=== PATIENT | female | born 1985 | race Caucasian/White ===

== ENCOUNTER 2016-11-07 12:22 | Emergency (ER) | payer SELFPAY ==
--- NOTE | 2016-11-07 12:32 | ER Document Report ---
ED Medical Screen (RME) - General Stated Complaint: LEG PAIN Notes: Left lower extremity pain status post fall TRAVEL OUTSIDE OF THE [place] IN LAST 30 DAYS: No - Related Data Allergies/Adverse Reactions: latex [Latex] Allergy (Severe, Verified 08/11/16 12:07) swelling,burning trazodone [Trazodone] Allergy (Intermediate, Verified 08/11/16 12:07) Hives ibuprofen Allergy (Verified 08/11/16 12:07) tramadol [Tramadol] Allergy (Verified 08/11/16 12:07) ondansetron HCl [From Zofran] Adverse Reaction (Intermediate, Verified 08/11/16 12:07) GI upset hydrocodone bitartrate [From Vicodin] Adverse Reaction (Verified 08/11/16 12:07) GI upset Past Medical History - Social History Family history: Reviewed & Not Pertinent, Other - Her sisters all have dysmenorrhea - Past Medical History Cardiac Medical History: Denies: Hx Pulmonary Embolism Pulmonary Medical History: Reports: Hx Asthma - exercise induced Denies: Hx Sleep Apnea, Hx Tuberculosis Renal/ Medical History: Reports: Hx Ovarian Cysts GI Medical History: Reports: Hx Gastroesophageal Reflux Disease, Hx Ulcer Musculoskeltal Medical History: Reports Hx Musculoskeletal Deformity, Reports Hx Musculoskeletal Trauma Psychiatric Medical History: Reports: Hx Attention Deficit Hyperactivity Disorder, Hx Bipolar Disorder - age 9, Hx Personality Disorder, Hx Post Traumatic Stress Disorder, Hx Schizophrenia Denies: Hx Depression Past Surgical History: Reports: Hx Breast Surgery, Hx Cardiac Surgery, Hx Section - x2, Hx Tubal Ligation. Denies: Hx Hysterectomy, Hx Pacemaker - Immunizations Immunizations up to date: Yes Hx Diphtheria, Pertussis, Tetanus Vaccination: Yes - received in 2009
--- NOTE | 2016-11-07 13:42 | ER Document Report ---
HPI - HPI Patient complains to provider of: knee pain Pain Level: 4 Context: Patient is a 30-year-old female presents emergency Department complaining of left hip knee and ankle pain. 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 States she had a twisting injury to her left knee as she was falling and landed on her left hip. Patient states that she has a history of a torn meniscus in her left knee that she has never had surgery on. She is unaware if it is either lateral or medial. Patient states at home she has been taking Tylenol and using a heating pad with minimal improvement in her symptoms. - CARDIOVASCULAR Cardiovascular: DENIES: Chest pain - REPRODUCTIVE Reproductive: DENIES: : - DERM Skin Color: Normal Past Medical History - General Information source: Patient - Social History Smoking Status: Current Every Day Smoker Chew tobacco use (# tins/day): No Frequency of alcohol use: None Drug Abuse: None Family History: Reviewed & Not Pertinent Patient has suicidal ideation: No Patient has homicidal ideation: No - Past Medical History Cardiac Medical History: Denies: Hx Pulmonary Embolism Pulmonary Medical History: Reports: Hx Asthma - exercise induced Denies: Hx Sleep Apnea, Hx Tuberculosis Renal/ Medical History: Reports: Hx Ovarian Cysts. Denies: Hx Peritoneal Dialysis GI Medical History: Reports: Hx Gastroesophageal Reflux Disease, Hx Ulcer Musculoskeltal Medical History: Reports Hx Musculoskeletal Deformity, Reports Hx Musculoskeletal Trauma Psychiatric Medical History: Reports: Hx Attention Deficit Hyperactivity Disorder, Hx Bipolar Disorder - age 9, Hx Personality Disorder, Hx Post Traumatic Stress Disorder, Hx Schizophrenia Denies: Hx Depression Past Surgical History: Reports: Hx Breast Surgery, Hx Cardiac Surgery, Hx Section - x2, Hx Tubal Ligation. Denies: Hx Hysterectomy, Hx Pacemaker - Immunizations Immunizations up to date: Yes Hx Diphtheria, Pertussis, Tetanus Vaccination: Yes - received in 2009 Hx Pneumococcal Vaccination: 08/27/12 Vertical Provider Document - CONSTITUTIONAL Agree With Documented VS: Yes Exam Limitations: No Limitations General Appearance: Mild Distress - INFECTION CONTROL TRAVEL OUTSIDE OF THE [place] IN LAST 30 DAYS: No - HEENT HEENT: Atraumatic, Normocephalic - RESPIRATORY O2 Sat by Pulse Oximetry: 97 - CARDIOVASCULAR Pulses: Normal: Radial, Popliteal, Dorsalis pedis Notes: cap refill less than 2 seconds in bilateral lower extremity digits - BACK Back: Normal Inspection - nontender - MUSCULOSKELETAL/EXTREMETIES Musculoskeletal/Extremeties: MAEW, FROM, Non-Tender - Tenderness to palpation with guarding. Pain worse on the medial aspect of the left knee. No pain to palpation of the ankle. No pain to palpation of the hip Notes: Able to ambulate with limping. But able to bear weight. Negative anterior and posterior drawer. Negative varus stress but positive valgus stress of the medial aspect of the knee. Positive Apley at the medial meniscus. Minor joint swelling of the left knee - NEURO Level of Consciousness: Awake, Alert, Appropriate Motor/Sensory: No Motor Deficit, No Sensory Deficit - DERM Integumentary: Warm, Dry, No Rash Course - Re-evaluation Re-evalutation: 11/07/16 13:41 Patient's history and physical exam reveal internal knee injury of the left knee. Likely sprain of the left ankle. 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 Encouraged to follow-up with orthopedics for further evaluation - Vital Signs Vital signs: Temp Pulse Resp BP Pulse Ox 98.2 F 103 H 20 105/72 97 11/07/16 12:34 11/07/16 12:34 11/07/16 12:34 11/07/16 12:34 11/07/16 12:34 - Diagnostic Test Radiology reviewed: Image reviewed, Reports reviewed Discharge - Discharge Clinical Impression: Internal knee problem Qualifiers: Laterality: left Qualified Code(s): M23.92 - Unspecified internal derangement of left knee Ankle sprain Qualifiers: Encounter type: initial encounter Involved ligament of ankle: deltoid ligament Laterality: left Qualified Code(s): S93.422A - Sprain of deltoid ligament of left ankle, initial encounter Condition: Good Disposition: HOME, SELF-CARE Instructions: Ice Packs ([facility]), Sprained Ankle ([facility]), Suspected Internal Knee Injury ([facility]), Use of Nnca-Pgf-Cuiymci Ibuprofen ([facility]) Forms: Return to Work Referrals: KASIA HARE, [ACTIVE STAFF] - Follow up as needed
[2016-11-07] MEDS ORDERED: NAPROXEN 375 MG TABLET PO ONE (13:44)
[2016-11-07 14:35] VITALS: BP 95/64
== END 2016-11-07 14:33 | disposition home or self-care (01) ==
LOC: ER 12:22
DX: S93.422A Sprain of deltoid ligament of left ankle, initial encounter (principal); M23.92 Unspecified internal derangement of left knee; M25.552 Pain in left hip; F17.200 Nicotine dependence, unspecified, uncomplicated; W01.0XXA Fall on same level from slipping, tripping and stumbling without subsequent striking against object, initial encounter; Y93.41 Activity, dancing; Y92.89 Other specified places as the place of occurrence of the external cause; Y99.0 Civilian activity done for income or pay; Z98.51 Tubal ligation status
CPT/HCPCS: 99283; 73610; 73562; J3490

== ENCOUNTER 2016-11-08 17:58 | Emergency (ER) | payer SELFPAY ==
--- NOTE | 2016-11-08 18:30 | ER Document Report ---
ED Medical Screen (RME) - General Chief Complaint: Pelvic Pain Stated Complaint: VAGINAL BLEEDING,NAUSEA,VOMITING Notes: Vaginal bleeding nausea and vomiting intermittently 5 days TRAVEL OUTSIDE OF THE [place] IN LAST 30 DAYS: No - Related Data Allergies/Adverse Reactions: latex [Latex] Allergy (Severe, Verified 11/07/16 12:34) swelling,burning trazodone [Trazodone] Allergy (Intermediate, Verified 11/07/16 12:34) Hives ibuprofen Allergy (Verified 11/07/16 12:34) tramadol [Tramadol] Allergy (Verified 11/07/16 12:34) ondansetron HCl [From Zofran] Adverse Reaction (Intermediate, Verified 11/07/16 12:34) GI upset hydrocodone bitartrate [From Vicodin] Adverse Reaction (Verified 11/07/16 12:34) GI upset Past Medical History - Social History Family history: Reviewed & Not Pertinent, Other - Her sisters all have dysmenorrhea - Past Medical History Cardiac Medical History: Denies: Hx Pulmonary Embolism Pulmonary Medical History: Reports: Hx Asthma - exercise induced Denies: Hx Sleep Apnea, Hx Tuberculosis Renal/ Medical History: Reports: Hx Ovarian Cysts. Denies: Hx Peritoneal Dialysis GI Medical History: Reports: Hx Gastroesophageal Reflux Disease, Hx Ulcer Musculoskeltal Medical History: Reports Hx Musculoskeletal Deformity, Reports Hx Musculoskeletal Trauma Psychiatric Medical History: Reports: Hx Attention Deficit Hyperactivity Disorder, Hx Bipolar Disorder - age 9, Hx Personality Disorder, Hx Post Traumatic Stress Disorder, Hx Schizophrenia Denies: Hx Depression Past Surgical History: Reports: Hx Breast Surgery, Hx Cardiac Surgery, Hx Section - x2, Hx Tubal Ligation. Denies: Hx Hysterectomy, Hx Pacemaker - Immunizations Immunizations up to date: Yes Hx Diphtheria, Pertussis, Tetanus Vaccination: Yes - received in 2009 Physical Exam - Vital signs Vitals: Temp Pulse Resp BP Pulse Ox 98.0 F 84 18 99/65 L 100 11/08/16 18:25 11/08/16 18:25 11/08/16 18:25 11/08/16 18:25 11/08/16 18:25 Course - Vital Signs Vital signs: Temp Pulse Resp BP Pulse Ox 98.0 F 84 18 99/65 L 100 11/08/16 18:25 11/08/16 18:25 11/08/16 18:25 11/08/16 18:25 11/08/16 18:25
[2016-11-08 19:02] LABS: ABSOLUTE BASOPHILS # (AUTO) 0.1 10^3/uL (0.0-0.2); ABSOLUTE EOSINOPHILS # (AUTO) 0.1 10^3/uL (0.0-0.6); ABSOLUTE LYMPHOCYTES (AUTO) 2.4 10^3/uL (0.5-4.7); ABSOLUTE MONOCYTES (AUTO) 0.5 10^3/uL (0.1-1.4); ABSOLUTE NEUT (AUTO) 4.2 10^3/uL (1.7-8.2); BASOPHILS % (AUTO) 0.9 % (0-2); EOSINOPHILS % (AUTO) 1.4 % (0-6); HEMATOCRIT 39.9 % (36.0-47.0); HEMOGLOBIN 12.6 g/dL (12.0-15.5); HGB HCT DIFFERENCE -2.1; LYMPHOCYTES % (AUTO) 32.8 % (13-45); MEAN CORPUSCULAR HEMOGLOBIN 29.8 pg (27.0-33.4); MEAN CORPUSCULAR HGB CONC 31.7 g/dL (32.0-36.0); MEAN CORPUSCULAR VOLUME 94 fl (80-97); RED BLOOD COUNT 4.24 10^6/uL (3.72-5.28); RED CELL DISTRIBUTION WIDTH 13.9 % (11.5-14.0); SEGMENTED NEUTROPHILS % (AUTO) 57.9 % (42-78); WHITE BLOOD COUNT 7.3 10^3/uL (4.0-10.5)
[2016-11-08 19:16] LABS: AMORPHOUS SEDIMENT,URINE TRACE /HPF; APPEARANCE,URINE TURBID; BILIRUBIN,URINE NEGATIVE (NEGATIVE); GLUCOSE, URINE NEGATIVE (NEGATIVE); KETONES,URINE NEGATIVE (NEGATIVE); LEUKOCYTE ESTERASE,URINE NEGATIVE (NEGATIVE); NITRITE,URINE NEGATIVE (NEGATIVE); PROTEIN,URINE NEGATIVE (NEGATIVE); UROBILINOGEN,URINE NEGATIVE mg/dL (<2.0)
[2016-11-08 19:23] LABS: ALANINE AMINOTRANSFERASE 15 U/L (9-52); ALBUMIN 3.8 g/dL (3.5-5.0); ALKALINE PHOSPHATASE 58 U/L (38-126); ANION GAP 10 (5-19); ASPARTATE AMINO TRANSFERASE 16 U/L (14-36); BILIRUBIN,TOTAL 0.3 mg/dL (0.2-1.3); BLOOD UREA NITROGEN 14 mg/dL (7-20); CALCIUM 9.1 mg/dL (8.4-10.2); CARBON DIOXIDE 27 mmol/L (22-30); CHLORIDE 107 mmol/L (98-107); CREATININE RESULT 0.92 mg/dL (0.52-1.25); GLUCOSE 91 mg/dL (75-110); POTASSIUM 4.7 mmol/L (3.6-5.0); SODIUM 144.1 mmol/L (137-145); TOTAL PROTEIN 6.7 g/dL (6.3-8.2)
--- NOTE | 2016-11-08 19:26 | ER Document Report ---
ED GI/ - General Chief Complaint: Vaginal Bleeding Stated Complaint: VAGINAL BLEEDING,NAUSEA,VOMITING Time seen by provider: 19:17 TRAVEL OUTSIDE OF THE [place] IN LAST 30 DAYS: No - HPI Patient complains to provider of: Pelvic pain, Vaginal bleeding - pt is with heavy vaginal bleeding over the past day and pelvic pain with h/o endometriosis - Related Data Allergies/Adverse Reactions: latex [Latex] Allergy (Severe, Verified 11/07/16 12:34) swelling,burning trazodone [Trazodone] Allergy (Intermediate, Verified 11/07/16 12:34) Hives ibuprofen Allergy (Verified 11/07/16 12:34) tramadol [Tramadol] Allergy (Verified 11/07/16 12:34) ondansetron HCl [From Zofran] Adverse Reaction (Intermediate, Verified 11/07/16 12:34) GI upset hydrocodone bitartrate [From Vicodin] Adverse Reaction (Verified 11/07/16 12:34) GI upset Past Medical History - General Information source: Patient - Social History Smoking Status: Unknown if Ever Smoked Cigarette use (# per day): No Chew tobacco use (# tins/day): No Smoking Education Provided: No Family History: Reviewed & Not Pertinent Patient has suicidal ideation: No Patient has homicidal ideation: No - Past Medical History Cardiac Medical History: Denies: Hx Pulmonary Embolism Pulmonary Medical History: Reports: Hx Asthma - exercise induced Denies: Hx Sleep Apnea, Hx Tuberculosis Renal/ Medical History: Reports: Hx Ovarian Cysts. Denies: Hx Peritoneal Dialysis GI Medical History: Reports: Hx Gastroesophageal Reflux Disease, Hx Ulcer Musculoskeltal Medical History: Reports Hx Musculoskeletal Deformity, Reports Hx Musculoskeletal Trauma Psychiatric Medical History: Reports: Hx Attention Deficit Hyperactivity Disorder, Hx Bipolar Disorder - age 9, Hx Personality Disorder, Hx Post Traumatic Stress Disorder, Hx Schizophrenia Denies: Hx Depression Past Surgical History: Reports: Hx Breast Surgery, Hx Cardiac Surgery, Hx Section - x2, Hx Tubal Ligation. Denies: Hx Hysterectomy, Hx Pacemaker - Immunizations Immunizations up to date: Yes Hx Diphtheria, Pertussis, Tetanus Vaccination: Yes - received in 2009 Hx Pneumococcal Vaccination: 08/27/12 Review of Systems - Review of Systems Constitutional: No symptoms reported EENT: No symptoms reported Cardiovascular: No symptoms reported Gastrointestinal: No symptoms reported Female Genitourinary: See HPI, Vaginal bleeding -: Yes All other systems reviewed and negative Physical Exam - Vital signs Vitals: Temp Pulse Resp BP Pulse Ox 98.0 F 84 18 99/65 L 100 11/08/16 18:25 11/08/16 18:25 11/08/16 18:25 11/08/16 18:25 11/08/16 18:25 - General General appearance: Appears well In distress: Mild - Respiratory Respiratory status: No respiratory distress Breath sounds: Normal - Cardiovascular Rhythm: Regular Heart sounds: Normal auscultation - Abdominal Inspection: Normal Bowel sounds: Normal Tenderness: Nontender - Genitourinary External exam: Normal Speculum exam: Cervix closed, Other - there is a small amount of blood in the posterior fornix Vaginal bleeding: None Bimanuel exam: Normal. No: Cervical motion tender, Adnexal tenderness Course - Vital Signs Vital signs: Temp Pulse Resp BP Pulse Ox 98.0 F 84 18 99/65 L 100 11/08/16 18:25 11/08/16 18:25 11/08/16 18:25 11/08/16 18:25 11/08/16 18:25 - Laboratory Result Diagrams: 11/08/16 18:40 11/08/16 18:40 Laboratory results interpreted by me: 11/08/16 18:40 MCHC 31.7 L Discharge - Discharge Clinical Impression: Dysfunctional uterine bleeding Condition: Stable Disposition: HOME, SELF-CARE Instructions: Pelvic Pain ([facility]) Additional Instructions: rest, take meds as prescribed, return if worse Prescriptions: Oxycodone HCl/Acetaminophen [Percocet 5-325 mg Tablet] 1 tab PO ASDIR PRN #15 tab PRN Reason: Referrals: SHANA HODGES MD [ACTIVE STAFF] - Follow up as needed
[2016-11-08] MEDS ORDERED: MORPHINE SULFATE 10 MG/ML INJ IM ONE (19:28)
[2016-11-08 20:26] VITALS: BP 109/71
== END 2016-11-08 20:26 | disposition home or self-care (01) ==
LOC: ER 17:58
DX: N93.8 Other specified abnormal uterine and vaginal bleeding (principal); R10.2 Pelvic and perineal pain; J45.909 Unspecified asthma, uncomplicated; Z87.42 Personal history of other diseases of the female genital tract; Z91.040 Latex allergy status; Z88.8 Allergy status to other drugs, medicaments and biological substances; Z88.5 Allergy status to narcotic agent; Z98.51 Tubal ligation status
CPT/HCPCS: 99284; 36415; 84702; 85025; 81025; 80053; 81001; J2270

== ENCOUNTER 2016-11-15 13:47 | Emergency (ER) | payer SELFPAY ==
[2016-11-15] MEDS ORDERED: NAPROXEN 375 MG TABLET PO ONE (14:50)
--- NOTE | 2016-11-15 14:53 | ER Document Report ---
ED Medical Screen (RME) - General Chief Complaint: Vaginal Pain Stated Complaint: VAGINAL PAIN Mode of Arrival: Ambulatory Information source: Patient Notes: 30-year-old female presents to the emergency department complaining of intermittent persistent vaginal bleeding and pelvic pain for approximately the last 2 weeks. Which was seen in this emergency department one week ago for same symptoms but they have persisted. 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 I have greeted and performed a rapid initial assessment of this patient. A comprehensive ED assessment and evaluation of the patient, analysis of test results and completion of the medical decision making process will be conducted by additional ED providers. TRAVEL OUTSIDE OF THE [place] IN LAST 30 DAYS: No - Related Data Allergies/Adverse Reactions: latex [Latex] Allergy (Severe, Verified 11/15/16 14:50) swelling,burning trazodone [Trazodone] Allergy (Intermediate, Verified 11/15/16 14:50) Hives ibuprofen Allergy (Verified 11/15/16 14:50) tramadol [Tramadol] Allergy (Verified 11/15/16 14:50) ondansetron HCl [From Zofran] Adverse Reaction (Intermediate, Verified 11/15/16 14:50) GI upset hydrocodone bitartrate [From Vicodin] Adverse Reaction (Verified 11/15/16 14:50) GI upset Past Medical History - Social History Frequency of alcohol use: Social Drug Abuse: None Family history: Reviewed & Not Pertinent, Other - Her sisters all have dysmenorrhea - Past Medical History Cardiac Medical History: Denies: Hx Pulmonary Embolism Pulmonary Medical History: Reports: Hx Asthma - exercise induced Denies: Hx Sleep Apnea, Hx Tuberculosis Renal/ Medical History: Reports: Hx Ovarian Cysts. Denies: Hx Peritoneal Dialysis GI Medical History: Reports: Hx Gastroesophageal Reflux Disease, Hx Ulcer Musculoskeltal Medical History: Reports Hx Musculoskeletal Deformity, Reports Hx Musculoskeletal Trauma Psychiatric Medical History: Reports: Hx Attention Deficit Hyperactivity Disorder, Hx Bipolar Disorder - age 9, Hx Personality Disorder, Hx Post Traumatic Stress Disorder, Hx Schizophrenia Denies: Hx Depression Past Surgical History: Reports: Hx Breast Surgery, Hx Cardiac Surgery, Hx Section - x2, Hx Tubal Ligation. Denies: Hx Hysterectomy, Hx Pacemaker - Immunizations Immunizations up to date: Yes Hx Diphtheria, Pertussis, Tetanus Vaccination: Yes - received in 2009 Physical Exam - Vital signs Vitals: Temp Pulse Resp BP Pulse Ox 98.4 F 96 21 H 106/69 100 11/15/16 14:26 11/15/16 14:11/15/16 14:11/15/16 14:11/15/16 14:26 - General General appearance: Appears well, Alert In distress: None - Respiratory Respiratory status: No respiratory distress Course - Vital Signs Vital signs: Temp Pulse Resp BP Pulse Ox 98.4 F 96 21 H 106/69 100 11/15/16 14:26 11/15/16 14:11/15/16 14:11/15/16 14:11/15/16 14:26
[2016-11-15 15:17] LABS: ABSOLUTE BASOPHILS # (AUTO) 0.1 10^3/uL (0.0-0.2); ABSOLUTE EOSINOPHILS # (AUTO) 0.1 10^3/uL (0.0-0.6); ABSOLUTE LYMPHOCYTES (AUTO) 2.1 10^3/uL (0.5-4.7); ABSOLUTE MONOCYTES (AUTO) 0.5 10^3/uL (0.1-1.4); ABSOLUTE NEUT (AUTO) 8.6 10^3/uL (1.7-8.2); BASOPHILS % (AUTO) 0.6 % (0-2); EOSINOPHILS % (AUTO) 0.7 % (0-6); HEMATOCRIT 43.1 % (36.0-47.0); HGB HCT DIFFERENCE -1.1; LYMPHOCYTES % (AUTO) 18.2 % (13-45); MEAN CORPUSCULAR HEMOGLOBIN 30.3 pg (27.0-33.4); MEAN CORPUSCULAR HGB CONC 32.4 g/dL (32.0-36.0); MEAN CORPUSCULAR VOLUME 93 fl (80-97); MONOCYTES % (AUTO) 4.1 % (3-13); RED BLOOD COUNT 4.62 10^6/uL (3.72-5.28); RED CELL DISTRIBUTION WIDTH 14.3 % (11.5-14.0); SEGMENTED NEUTROPHILS % (AUTO) 76.4 % (42-78); WHITE BLOOD COUNT 11.3 10^3/uL (4.0-10.5)
[2016-11-15 15:25] LABS: APPEARANCE,URINE CLOUDY; BILIRUBIN,URINE NEGATIVE (NEGATIVE); GLUCOSE, URINE NEGATIVE (NEGATIVE); KETONES,URINE NEGATIVE (NEGATIVE); LEUKOCYTE ESTERASE,URINE LARGE (NEGATIVE); NITRITE,URINE POSITIVE (NEGATIVE); PROTEIN,URINE 30 mg/dL (NEGATIVE); URINE SPECIFIC GRAVITY 1.015; UROBILINOGEN,URINE NEGATIVE mg/dL (<2.0)
[2016-11-15 15:38] LABS: ALANINE AMINOTRANSFERASE 17 U/L (9-52); ALBUMIN 4.5 g/dL (3.5-5.0); ALKALINE PHOSPHATASE 74 U/L (38-126); ANION GAP 10 (5-19); ASPARTATE AMINO TRANSFERASE 16 U/L (14-36); BILIRUBIN,TOTAL 0.5 mg/dL (0.2-1.3); BLOOD UREA NITROGEN 8 mg/dL (7-20); CALCIUM 9.9 mg/dL (8.4-10.2); CARBON DIOXIDE 30 mmol/L (22-30); CHLORIDE 102 mmol/L (98-107); CREATININE RESULT 0.73 mg/dL (0.52-1.25); GLUCOSE 117 mg/dL (75-110); POTASSIUM 4.6 mmol/L (3.6-5.0); SODIUM 142.3 mmol/L (137-145); TOTAL PROTEIN 7.1 g/dL (6.3-8.2)
[2016-11-15] MEDS ORDERED: PROMETHAZINE HCL 25 MG TABLET PO ONE (16:44)
[2016-11-15] MEDS ORDERED: NITROFURANTOIN MONOHYD/M-CRYST 100 MG CAPSULE PO ONE (16:49)
--- NOTE | 2016-11-15 16:52 | ER Document Report ---
ED GI/ - General Chief Complaint: Vaginal Pain Stated Complaint: VAGINAL PAIN Time seen by provider: 16:47 Mode of Arrival: Ambulatory Information source: Patient Notes: 30-year-old female presents to ED for pelvic pain for the last 2 weeks with vaginal bleeding. She states she has a history of endometriosis and ovarian cyst with irregular bleeding. She states sometimes her. Her last 3 weeks and sometimes it'll last 1 week. She has an appointment with Dr. 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 TRAVEL OUTSIDE OF THE [place] 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 Menstrual period history: Abnormal Associated symptoms: Nausea Exacerbated by: Movement, Walking Relieved by: Denies Similar symptoms previously: Yes Recently seen / treated by doctor: No - Related Data Allergies/Adverse Reactions: latex [Latex] Allergy (Severe, Verified 11/15/16 14:50) swelling,burning trazodone [Trazodone] Allergy (Intermediate, Verified 11/15/16 14:50) Hives ibuprofen Allergy (Verified 11/15/16 14:50) tramadol [Tramadol] Allergy (Verified 11/15/16 14:50) ondansetron HCl [From Zofran] Adverse Reaction (Intermediate, Verified 11/15/16 14:50) GI upset hydrocodone bitartrate [From Vicodin] Adverse Reaction (Verified 11/15/16 14:50) GI upset Past Medical History - General Information source: Patient - Social History Smoking Status: Current Every Day Smoker Cigarette use (# per day): Yes Chew tobacco use (# tins/day): No Smoking Education Provided: Yes - less than 2 minutes Frequency of alcohol use: Social Drug Abuse: None Family History: Arthritis, CAD, DM, Hyperlipidemia, Hypertension, Malignancy, Thyroid Disfunction Patient has suicidal ideation: No Patient has homicidal ideation: No - Past Medical History Cardiac Medical History: Reports: None Pulmonary Medical History: Reports: Hx Asthma - exercise induced EENT Medical History: Reports: None Neurological Medical History: Reports: None Endocrine Medical History: Reports: None Renal/ Medical History: Reports: Hx Ovarian Cysts - PCOS, Other - Endometriosis Malignancy Medical History: Reports: None GI Medical History: Reports: Hx Gastroesophageal Reflux Disease, Hx Ulcer Musculoskeltal Medical History: Reports Hx Musculoskeletal Deformity - Scoliosis , Reports Hx Musculoskeletal Trauma - Sprains of knee and hip Skin Medical History: Reports None Psychiatric Medical History: Reports: Hx Attention Deficit Hyperactivity Disorder, Hx Bipolar Disorder - age 9, Hx Personality Disorder, Hx Post Traumatic Stress Disorder, Hx Schizophrenia Traumatic Medical History: Reports: None Infectious Medical History: Reports: None Past Surgical History: Reports: Hx Breast Surgery, Hx Section - x2, Hx Tubal Ligation - Immunizations Immunizations up to date: Yes Hx Diphtheria, Pertussis, Tetanus Vaccination: Yes - received in 2009 Hx Pneumococcal Vaccination: 08/27/12 Review of Systems - Review of Systems Constitutional: No symptoms reported EENT: No symptoms reported Cardiovascular: No symptoms reported Respiratory: No symptoms reported Gastrointestinal: No symptoms reported Genitourinary: No symptoms reported Female Genitourinary: Heavy/abnormal periods, Vaginal bleeding, Other - Pelvic pain and vaginal pain Musculoskeletal: No symptoms reported Skin: No symptoms reported Hematologic/Lymphatic: No symptoms reported Neurological/Psychological: No symptoms reported -: Yes All other systems reviewed and negative Physical Exam - Vital signs Vitals: Temp Pulse Resp BP Pulse Ox 98.4 F 96 21 H 106/69 100 11/15/16 14:26 11/15/16 14:26 11/15/16 14:26 11/15/16 14:26 11/15/16 14:26 Interpretation: Normal - General General appearance: Appears well, Alert - HEENT Head: Normocephalic, Atraumatic Eyes: Normal Pupils: PERRL - Respiratory Respiratory status: No respiratory distress Chest status: Nontender Breath sounds: Normal Chest palpation: Normal - Cardiovascular Rhythm: Regular Heart sounds: Normal auscultation Murmur: No - Abdominal Inspection: Normal Distension: No distension Bowel sounds: Normal Tenderness: Tender - Bilateral pelvic pain Organomegaly: No organomegaly - Genitourinary External exam: Normal Speculum exam: Cervix closed Vaginal bleeding: Mild Bimanuel exam: Cervical motion tender, Adnexal tenderness - Left - Back Back: Normal, Nontender - Extremities General upper extremity: Normal inspection, Nontender, Normal color, Normal ROM , Normal temperature General lower extremity: Normal inspection, Nontender, Normal color, Normal ROM , Normal temperature, Normal weight bearing. No: Ruslan's sign - Neurological Neuro grossly intact: Yes Cognition: Normal Orientation: AAOx4 Ashley Coma Scale Eye Opening: Spontaneous [place] Coma Scale Verbal: Oriented Ashley Coma Scale Motor: Obeys Commands Ashley Coma Scale Total: 15 Speech: Normal Motor strength normal: LUE, RUE, LLE, RLE Sensory: Normal - Psychological Associated symptoms: Normal affect, Normal mood - Skin Skin Temperature: Warm Skin Moisture: Dry Skin Color: Normal Course - Re-evaluation Re-evalutation: 11/15/16 19:40 Discussed ultrasound and labs with patient patient will be discharged home with prescriptions for Flagyl and Macrobid naproxen and Phenergan. Patient has had naproxen and Phenergan Flagyl and Macrobid in the emergency room. - Vital Signs Vital signs: Temp Pulse Resp BP Pulse Ox 98.0 F 82 16 101/62 96 11/15/16 19:40 11/15/16 19:40 11/15/16 19:40 11/15/16 19:40 11/15/16 19:40 - Laboratory Result Diagrams: 11/15/16 14:50 11/15/16 14:50 Laboratory results interpreted by me: 11/15/16 11/15/16 11/15/16 14:50 14:50 14:50 WBC 11.3 H RDW 14.3 H Absolute Neutrophils 8.6 H Glucose 117 H Urine Protein 30 H Urine Blood LARGE H Urine Nitrite POSITIVE H Ur Leukocyte Esterase LARGE H - Diagnostic Test Radiology reviewed: Image reviewed, Reports reviewed Discharge - Discharge Clinical Impression: Bacterial vaginosis, Vaginal bleeding, Pelvic pain UTI (urinary tract infection) Qualifiers: Urinary tract infection type: site unspecified Hematuria presence: with hematuria Qualified Code(s): N39.0 - Urinary tract infection, site not specified Condition: Stable Disposition: HOME, SELF-CARE Instructions: Family Physicians / Practices Additional Instructions: URINARY TRACT INFECTION: Your evaluation indicates that you have a urinary tract infection. This is due to germs growing in the bladder. This is a common problem. This infection usually responds quickly to antibiotics. Your antibiotic should be taken exactly as prescribed. Drink plenty of fluids -- three to four quarts a day. Occasionally, a bladder anesthetic will be prescribed to help stop the feeling of urgency until the antibiotic has a chance to clear the infection. This may cause your urine to be dark orange. Certain urine infections require a culture. If the doctor obtained a culture, the results will be back in two days. You should call to see if a change in treatment is needed. A repeat urinalysis after you finish treatment is often recommended. The physician will let you know if further testing is required. Call the doctor if you develop fever, chills, flank pain, inability to urinate, or blood in the urine. VAGINOSIS, BACTERIAL: Your exam shows you have bacterial vaginosis. This condition is due to an overgrowth of bacteria in the vagina. Symptoms may include vaginal itching or pain, a smelly discharge, and sometimes burning with urination. Normally this is not transmitted by sexual contact. Vaginosis can be treated with oral or topical antibiotics. Metronidazole ( Flagyl) pills are usually effective. Topical vaginal creams include Cleocin and Metro-Gel. You should avoid sexual contact until your symptoms are all better. Call the doctor if you develop pelvic pain, fever, or problems with urination, or if you don't improve as expected. METRONIDAZOLE: Metronidazole (Flagyl) has been prescribed. This medication is used to kill a type of bacteria called anaerobes, and protozoan parasites such as trichomonas and Giardia. Flagyl often causes a metallic taste in the mouth and mild nausea. Do not use alcohol in any form with Flagyl (including alcohol in medication elixirs). Flagyl interacts with alcohol to cause flushing, palpitations, headache, stomach cramps, and vomiting. Do not use Flagyl if you are taking Antabuse (disulfiram). Call the doctor at once if you develop rash, shortness of breath, itching, or lightheadedness. NITROFURANTOIN (MACRODANTIN, MACROBID): You have received a prescription for nitrofurantoin (Macrodantin). This antibiotic is used for urinary tract infections. Women who are or nursing should notify the physician before taking this medicine. If you have ever had a problem caused by this medication in the past, be sure the physician is aware of it. Common side effects of this medicine include nausea, vomiting, or decreased appetite. Notify your physician if these side effects become severe. Immediately stop this medicine and call the physician if you develop cough , shortness of breath, chest pain, weakness, jaundice (yellow color of the skin and whites of the eyes), or a skin rash. Antinausea Medication You have been given a medication to suppress nausea and vomiting. This type of medication can be given as a shot, pill, or suppository. It will usually last for many hours. Pills and shots usually last six to eight hours, suppositories last about 12 hours. For the typical illness, only one or two doses of the medication may be necessary. Mild lightheadedness may occur. This type of medicine can cause drowsiness. Do not drive or operate dangerous machinery while under its influence. Do not mix with alcohol. See your doctor at once if you have muscle spasms or tightness, or uncontrollable motions (particularly of the neck, mouth, or jaw). Persistent vomiting or severe lightheadedness should also be evaluated by the physician. FOLLOW-UP CARE: If you have been referred to a physician for follow-up care, call the physician s office for an appointment as you were instructed or within the next two days. If you experience worsening or a significant change in your symptoms, notify the physician immediately or return to the Emergency Department at any time for re-evaluation. Prescriptions: Promethazine HCl [Phenergan 25 mg Tablet] 25 mg PO Q6HP PRN #14 tablet PRN Reason: Metronidazole [Flagyl 500 mg Tablet] 500 mg PO BID #14 tablet Naproxen 500 mg PO BIDP PRN #14 tablet PRN Reason: Nitrofurantoin Monohyd/M-Cryst [Macrobid 100 mg Capsule] 100 mg PO BID #14 capsule Forms: Smoking Cessation Education
[2016-11-15 18:43] LABS: CHLAM PCR NOT DETECTED (NOT DETECT)
[2016-11-15] MEDS ORDERED: METRONIDAZOLE 500 MG TABLET PO ONE (19:41)
[2016-11-15 19:47] VITALS: BP 101/62
== END 2016-11-15 20:18 | disposition home or self-care (01) ==
LOC: ER 13:47
DX: N76.0 Acute vaginitis (principal); B96.89 Other specified bacterial agents as the cause of diseases classified elsewhere; N39.0 Urinary tract infection, site not specified; N80.9 Endometriosis, unspecified; R10.2 Pelvic and perineal pain; N93.9 Abnormal uterine and vaginal bleeding, unspecified; J45.909 Unspecified asthma, uncomplicated; F17.210 Nicotine dependence, cigarettes, uncomplicated; Z87.42 Personal history of other diseases of the female genital tract; Z91.040 Latex allergy status; Z88.8 Allergy status to other drugs, medicaments and biological substances; Z88.6 Allergy status to analgesic agent; Z88.5 Allergy status to narcotic agent; Z71.6 Tobacco abuse counseling; Z87.19 Personal history of other diseases of the digestive system; Z98.51 Tubal ligation status
CPT/HCPCS: 99284; 36415; 87210; 84703; 85025; 80053; 81001; 87491; 87591; 76830; 93976; J3490; J8499

== ENCOUNTER 2016-12-06 17:44 | Emergency (ER) | payer OTHER ==
[2016-12-06 17:54] VITALS: BP 105/65
--- NOTE | 2016-12-06 18:02 | ER Document Report ---
ED Medical Screen (RME) - General Chief Complaint: Fall Stated Complaint: FALL/BACK,LEFT SHOULDER,HIP PAIN Time seen by provider: 18:00 Mode of Arrival: Ambulatory Information source: Patient Notes: 30-year-old female presents to ED for pain in her back left shoulder and both knees after falling off of a dancing pole at work. States she grabbed herself with her left hand and that's why her shoulder hurts and that she fell off and on for her knees and back hurts. Last menstrual period was in September 2016. She states she has endometriosis and ovarian cyst and is irregular. I have greeted and performed a rapid initial assessment of this patient. A comprehensive ED assessment and evaluation of the patient, analysis of test results and completion of medical decision making process will be conducted by an additional ED providers. TRAVEL OUTSIDE OF THE [place] IN LAST 30 DAYS: No - Related Data Allergies/Adverse Reactions: latex [Latex] Allergy (Severe, Verified 11/15/16 14:50) swelling,burning trazodone [Trazodone] Allergy (Intermediate, Verified 11/15/16 14:50) Hives ibuprofen Allergy (Verified 11/15/16 14:50) tramadol [Tramadol] Allergy (Verified 11/15/16 14:50) ondansetron HCl [From Zofran] Adverse Reaction (Intermediate, Verified 11/15/16 14:50) GI upset hydrocodone bitartrate [From Vicodin] Adverse Reaction (Verified 11/15/16 14:50) GI upset Past Medical History - Social History Family history: Reviewed & Not Pertinent, Other - Her sisters all have dysmenorrhea - Past Medical History Cardiac Medical History: Denies: Hx Pulmonary Embolism Pulmonary Medical History: Reports: Hx Asthma - exercise induced Denies: Hx Sleep Apnea, Hx Tuberculosis Renal/ Medical History: Reports: Hx Ovarian Cysts - PCOS. Denies: Hx Peritoneal Dialysis GI Medical History: Reports: Hx Gastroesophageal Reflux Disease, Hx Ulcer Musculoskeltal Medical History: Reports Hx Musculoskeletal Deformity - Scoliosis , Reports Hx Musculoskeletal Trauma - Sprains of knee and hip Psychiatric Medical History: Reports: Hx Attention Deficit Hyperactivity Disorder, Hx Bipolar Disorder - age 9, Hx Personality Disorder, Hx Post Traumatic Stress Disorder, Hx Schizophrenia Denies: Hx Depression Past Surgical History: Reports: Hx Breast Surgery, Hx Cardiac Surgery, Hx Section - x2, Hx Tubal Ligation. Denies: Hx Hysterectomy, Hx Pacemaker - Immunizations Immunizations up to date: Yes Hx Diphtheria, Pertussis, Tetanus Vaccination: Yes - received in 2009 Physical Exam - Vital signs Vitals: Temp Pulse Resp BP Pulse Ox 98.8 F 97 18 105/65 98 12/06/16 17:53 12/06/16 17:53 12/06/16 17:53 12/06/16 17:53 12/06/16 17:53 Course - Vital Signs Vital signs: Temp Pulse Resp BP Pulse Ox 98.8 F 97 18 105/65 98 12/06/16 17:53 12/06/16 17:53 12/06/16 17:53 12/06/16 17:53 12/06/16 17:53
[2016-12-06] MEDS ORDERED: ACETAMINOPHEN 325 MG TABLET PO ONE (18:03)
== END 2016-12-06 21:00 | disposition left against medical advice (07) ==
LOC: ER 17:44
DX: M25.512 Pain in left shoulder (principal); M54.9 Dorsalgia, unspecified; M25.562 Pain in left knee; M25.561 Pain in right knee; W19.XXXA Unspecified fall, initial encounter; Y99.0 Civilian activity done for income or pay
CPT/HCPCS: 81025; 99281

== ENCOUNTER 2016-12-07 14:57 | Emergency (ER) | payer OTHER ==
[2016-12-07 15:17] VITALS: BP 104/67
--- NOTE | 2016-12-07 15:27 | ER Document Report ---
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 she states she landed on the back of her neck and left shoulder. able to move but with pain. has been doing ice and heat taking APAP with minimal relief, on celebrex for endometriosis PMH: endometriosis I have greeted and performed a rapid initial assessment of this patient. A comprehensive ED assessment and evaluation of the patient, analysis of test results and completion of the medical decision making process will be conducted by additional ED providers. TRAVEL OUTSIDE OF THE [place] IN LAST 30 DAYS: No - Related Data Allergies/Adverse Reactions: latex [Latex] Allergy (Severe, Verified 12/06/16 18:05) swelling,burning trazodone [Trazodone] Allergy (Intermediate, Verified 12/06/16 18:05) Hives ibuprofen Allergy (Verified 12/06/16 18:05) tramadol [Tramadol] Allergy (Verified 12/06/16 18:05) ondansetron HCl [From Zofran] Adverse Reaction (Intermediate, Verified 12/06/16 18:05) GI upset hydrocodone bitartrate [From Vicodin] Adverse Reaction (Verified 12/06/16 18:05) GI upset Past Medical History - Social History Family history: Reviewed & Not Pertinent, Other - Her sisters all have dysmenorrhea - Past Medical History Cardiac Medical History: Denies: Hx Pulmonary Embolism Pulmonary Medical History: Reports: Hx Asthma - exercise induced Denies: Hx Sleep Apnea, Hx Tuberculosis Renal/ Medical History: Reports: Hx Ovarian Cysts - PCOS. Denies: Hx Peritoneal Dialysis GI Medical History: Reports: Hx Gastroesophageal Reflux Disease, Hx Ulcer Musculoskeltal Medical History: Reports Hx Musculoskeletal Deformity - Scoliosis , Reports Hx Musculoskeletal Trauma - Sprains of knee and hip Psychiatric Medical History: Reports: Hx Attention Deficit Hyperactivity Disorder, Hx Bipolar Disorder - age 9, Hx Personality Disorder, Hx Post Traumatic Stress Disorder, Hx Schizophrenia Denies: Hx Depression Past Surgical History: Reports: Hx Breast Surgery, Hx Cardiac Surgery, Hx Section - x2, Hx Tubal Ligation. Denies: Hx Hysterectomy, Hx Pacemaker - Immunizations Immunizations up to date: Yes Hx Diphtheria, Pertussis, Tetanus Vaccination: Yes - received in 2009 Physical Exam - Vital signs Vitals: Temp Pulse Resp BP Pulse Ox 98.4 F 96 14 104/67 98 12/07/16 15:16 12/07/16 15:16 12/07/16 15:16 12/07/16 15:16 12/07/16 15:16 Course - Vital Signs Vital signs: Temp Pulse Resp BP Pulse Ox 98.4 F 96 14 104/67 98 12/07/16 15:16 12/07/16 15:16 12/07/16 15:16 12/07/16 15:16 12/07/16 15:16
[2016-12-07] MEDS ORDERED: ACETAMINOPHEN 325 MG TABLET PO ONE (15:28)
[2016-12-07] MEDS ORDERED: CYCLOBENZAPRINE HCL 10 MG TABLET PO ONE (17:34)
--- NOTE | 2016-12-07 17:34 | ER Document Report ---
HPI - HPI Pain Level: 3 Context: Patient is a 30-year-old female presents emergency department after she fell while at work. 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 She states that she's been able to walk is range of motion of her neck, denies any vision changes, headaches. She's been doing heat and ice at home taking Tylenol but with minimal relief of her symptoms. - REPRODUCTIVE Reproductive: DENIES: : - DERM Skin Color: Normal Past Medical History - General Information source: Patient - Social History Smoking Status: Current Every Day Smoker Chew tobacco use (# tins/day): No Frequency of alcohol use: None Drug Abuse: None Family History: Arthritis, CAD, DM, Hyperlipidemia, Hypertension, Malignancy, Thyroid Disfunction Patient has suicidal ideation: No Patient has homicidal ideation: No - Past Medical History Cardiac Medical History: Denies: Hx Pulmonary Embolism Pulmonary Medical History: Reports: Hx Asthma - exercise induced Denies: Hx Sleep Apnea, Hx Tuberculosis Renal/ Medical History: Reports: Hx Ovarian Cysts - PCOS. Denies: Hx Peritoneal Dialysis GI Medical History: Reports: Hx Gastroesophageal Reflux Disease, Hx Ulcer Musculoskeltal Medical History: Reports Hx Musculoskeletal Deformity - Scoliosis , Reports Hx Musculoskeletal Trauma - Sprains of knee and hip Psychiatric Medical History: Reports: Hx Attention Deficit Hyperactivity Disorder, Hx Bipolar Disorder - age 9, Hx Personality Disorder, Hx Post Traumatic Stress Disorder, Hx Schizophrenia Denies: Hx Depression Past Surgical History: Reports: Hx Breast Surgery, Hx Cardiac Surgery, Hx Section - x2, Hx Tubal Ligation. Denies: Hx Hysterectomy, Hx Pacemaker - Immunizations Immunizations up to date: Yes Hx Diphtheria, Pertussis, Tetanus Vaccination: Yes - received in 2009 Hx Pneumococcal Vaccination: 08/27/12 Vertical Provider Document - CONSTITUTIONAL Agree With Documented VS: Yes Exam Limitations: No Limitations General Appearance: WD/WN, Mild Distress - INFECTION CONTROL TRAVEL OUTSIDE OF THE [place] IN LAST 30 DAYS: No - HEENT HEENT: Atraumatic, Normal ENT Exam, Normocephalic - NECK Neck: Normal Inspection, Other - no spinous process tenderness, stiff paraspinous muscles of c spine.. negative: Lymphadenopathy-Left, Lymphadenopathy-Right - RESPIRATORY O2 Sat by Pulse Oximetry: 98 - CARDIOVASCULAR Pulses: Normal: Radial - BACK Back: Normal Inspection Notes: no spinous process tenderness - MUSCULOSKELETAL/EXTREMETIES Notes: able to move left shoulder but with guarding, no painto palpaiton or PROM of the joint - NEURO Level of Consciousness: Awake, Alert, Appropriate Motor/Sensory: No Motor Deficit, No Sensory Deficit Course - Re-evaluation Re-evalutation: 12/07/16 17:37 Patient is a 30-year-old female who suffered a mechanical fall. No evidence of injury, acute fracture dislocation on x-ray. Will discharge patient home and can follow up with PCP as needed. - Vital Signs Vital signs: Temp Pulse Resp BP Pulse Ox 98.4 F 96 14 104/67 98 12/07/16 15:16 12/07/16 15:16 12/07/16 15:16 12/07/16 15:16 12/07/16 15:16 - Diagnostic Test Radiology reviewed: Image reviewed, Reports reviewed Discharge - Discharge Clinical Impression: Fall Qualifiers: Encounter type: initial encounter Qualified Code(s): W19.XXXA - Unspecified fall, initial encounter Condition: Good Disposition: HOME, SELF-CARE Instructions: Muscle Strain ([facility]), Muscle Relaxers ([facility]), Warm Packs ([facility]), Ice Packs ([facility]), Exercise Program for the Shoulder ([facility]) Prescriptions: Cyclobenzaprine HCl [Flexeril 5 mg Tablet] 5 mg PO TID #15 tablet Meloxicam [Mobic 15 mg Tablet] 15 mg PO DAILYP PRN #15 tablet PRN Reason: Forms: Return to Work
== END 2016-12-07 18:02 | disposition home or self-care (01) ==
LOC: ER 14:57
DX: R29.898 Other symptoms and signs involving the musculoskeletal system (principal); W17.89XA Other fall from one level to another, initial encounter; Y93.41 Activity, dancing; Y99.0 Civilian activity done for income or pay; J45.909 Unspecified asthma, uncomplicated; F17.200 Nicotine dependence, unspecified, uncomplicated
CPT/HCPCS: 72040; 99283

== ENCOUNTER 2017-02-13 10:35 | Emergency (ER) | payer SELFPAY ==
[2017-02-13 10:46] VITALS: BP 112/71
--- NOTE | 2017-02-13 12:04 | ER Document Report ---
ED Medical Screen (RME) - General Chief Complaint: Pelvic Pain Stated Complaint: PELVIC PAIN Notes: Patient is complaining of left lower quadrant pain that she's had for years. She says it's increased over the past couple of weeks. Has seen her local physician who prescribed Percocet and Flexeril, but she is out of those medicines and pain has worsened. She says that she has both bladder and ovarian cysts. Has nausea. Some blood in urine. Think she may have had a fever but not sure. LMP November. Patient has had her tubes tied. History of . History of endometriosis. History of ovarian cysts. Patient has been noted to have many emergency department visits. This visit villatoro the 18th visit of this patient to this emergency department in the past year, almost all of them for abdominal pains. TRAVEL OUTSIDE OF THE [place] IN LAST 30 DAYS: No - Related Data Allergies/Adverse Reactions: latex [Latex] Allergy (Severe, Verified 02/13/17 10:42) swelling,burning trazodone [Trazodone] Allergy (Intermediate, Verified 02/13/17 10:42) Hives ibuprofen Allergy (Verified 02/13/17 10:42) ketorolac [From Toradol] Allergy (Verified 02/13/17 10:42) tramadol [Tramadol] Allergy (Verified 02/13/17 10:42) ondansetron HCl [From Zofran] Adverse Reaction (Intermediate, Verified 02/13/17 10:42) GI upset hydrocodone bitartrate [From Vicodin] Adverse Reaction (Verified 02/13/17 10:42) GI upset Past Medical History - Social History Family history: Reviewed & Not Pertinent, Other - Her sisters all have dysmenorrhea - Past Medical History Cardiac Medical History: Denies: Hx Pulmonary Embolism Pulmonary Medical History: Reports: Hx Asthma - exercise induced Denies: Hx Sleep Apnea, Hx Tuberculosis Renal/ Medical History: Reports: Hx Ovarian Cysts - PCOS. Denies: Hx Peritoneal Dialysis GI Medical History: Reports: Hx Gastroesophageal Reflux Disease, Hx Ulcer Musculoskeltal Medical History: Reports Hx Musculoskeletal Deformity - Scoliosis , Reports Hx Musculoskeletal Trauma - Sprains of knee and hip Psychiatric Medical History: Reports: Hx Attention Deficit Hyperactivity Disorder, Hx Bipolar Disorder - age 9, Hx Personality Disorder, Hx Post Traumatic Stress Disorder, Hx Schizophrenia Denies: Hx Depression Past Surgical History: Reports: Hx Breast Surgery, Hx Cardiac Surgery, Hx Section - x2, Hx Tubal Ligation. Denies: Hx Hysterectomy, Hx Pacemaker - Immunizations Immunizations up to date: Yes Hx Diphtheria, Pertussis, Tetanus Vaccination: Yes - received in 2009 Physical Exam - Vital signs Vitals: Temp Pulse Resp BP Pulse Ox 98.8 F 92 18 112/71 98 02/13/17 10:43 02/13/17 10:43 02/13/17 10:43 02/13/17 10:43 02/13/17 10:43 Course - Vital Signs Vital signs: Temp Pulse Resp BP Pulse Ox 98.8 F 92 18 112/71 98 02/13/17 10:43 02/13/17 10:43 02/13/17 10:43 02/13/17 10:43 02/13/17 10:43
[2017-02-13 12:50] LABS: AMORPHOUS SEDIMENT,URINE TRACE /HPF; APPEARANCE,URINE SLIGHTLY-CLOUDY; BILIRUBIN,URINE NEGATIVE (NEGATIVE); GLUCOSE, URINE NEGATIVE (NEGATIVE); KETONES,URINE NEGATIVE (NEGATIVE); LEUKOCYTE ESTERASE,URINE MODERATE (NEGATIVE); NITRITE,URINE POSITIVE (NEGATIVE); PROTEIN,URINE NEGATIVE (NEGATIVE); URINE SPECIFIC GRAVITY 1.014; UROBILINOGEN,URINE NEGATIVE mg/dL (<2.0)
== END 2017-02-13 12:45 | disposition left against medical advice (07) ==
LOC: ER 10:35
DX: Z53.9 Procedure and treatment not carried out, unspecified reason (principal); R10.2 Pelvic and perineal pain; Z79.899 Other long term (current) drug therapy; R31.9 Hematuria, unspecified; R11.0 Nausea
CPT/HCPCS: 81001; 99281

== ENCOUNTER 2017-02-14 04:28 | Emergency (ER) | payer SELFPAY ==
[2017-02-14 05:04] VITALS: BP 119/71
--- NOTE | 2017-02-14 06:22 | ER Document Report ---
ED General - General Chief Complaint: Abdominal Pain Stated Complaint: ABDOMINAL PAIN,NAUSEA TRAVEL OUTSIDE OF THE [place] IN LAST 30 DAYS: No - Related Data Allergies/Adverse Reactions: latex [Latex] Allergy (Severe, Verified 02/13/17 10:42) swelling,burning trazodone [Trazodone] Allergy (Intermediate, Verified 02/13/17 10:42) Hives ibuprofen Allergy (Verified 02/13/17 10:42) ketorolac [From Toradol] Allergy (Verified 02/13/17 10:42) tramadol [Tramadol] Allergy (Verified 02/13/17 10:42) ondansetron HCl [From Zofran] Adverse Reaction (Intermediate, Verified 02/13/17 10:42) GI upset hydrocodone bitartrate [From Vicodin] Adverse Reaction (Verified 02/13/17 10:42) GI upset Past Medical History - Social History Family History: Arthritis, CAD, DM, Hyperlipidemia, Hypertension, Malignancy, Thyroid Disfunction Patient has suicidal ideation: No Patient has homicidal ideation: No - Past Medical History Cardiac Medical History: Denies: Hx Pulmonary Embolism Pulmonary Medical History: Reports: Hx Asthma - exercise induced Denies: Hx Sleep Apnea, Hx Tuberculosis Renal/ Medical History: Reports: Hx Ovarian Cysts - PCOS. Denies: Hx Peritoneal Dialysis GI Medical History: Reports: Hx Gastroesophageal Reflux Disease, Hx Ulcer Musculoskeltal Medical History: Reports Hx Musculoskeletal Deformity - Scoliosis , Reports Hx Musculoskeletal Trauma - Sprains of knee and hip Psychiatric Medical History: Reports: Hx Attention Deficit Hyperactivity Disorder, Hx Bipolar Disorder - age 9, Hx Personality Disorder, Hx Post Traumatic Stress Disorder, Hx Schizophrenia Denies: Hx Depression Past Surgical History: Reports: Hx Breast Surgery, Hx Cardiac Surgery, Hx Section - x2, Hx Tubal Ligation. Denies: Hx Hysterectomy, Hx Pacemaker - Immunizations Immunizations up to date: Yes Hx Diphtheria, Pertussis, Tetanus Vaccination: Yes - received in 2009 Hx Pneumococcal Vaccination: 08/27/12 Physical Exam - Vital signs Vitals: Temp Pulse Resp BP Pulse Ox 98.2 F 78 20 119/71 99 02/14/17 05:00 02/14/17 05:00 02/14/17 05:00 02/14/17 05:00 02/14/17 05:00 Course - Vital Signs Vital signs: Temp Pulse Resp BP Pulse Ox 98.2 F 78 20 119/71 99 02/14/17 05:00 02/14/17 05:00 02/14/17 05:00 02/14/17 05:00 02/14/17 05:00
[2017-02-14 07:49] LABS: APPEARANCE,URINE CLEAR; BILIRUBIN,URINE NEGATIVE (NEGATIVE); GLUCOSE, URINE NEGATIVE (NEGATIVE); KETONES,URINE NEGATIVE (NEGATIVE); LEUKOCYTE ESTERASE,URINE NEGATIVE (NEGATIVE); NITRITE,URINE NEGATIVE (NEGATIVE); PROTEIN,URINE NEGATIVE (NEGATIVE); URINE SPECIFIC GRAVITY 1.015; UROBILINOGEN,URINE NEGATIVE mg/dL (<2.0)
[2017-02-14 08:10] LABS: URINE BARBITURATES SCREEN NEGATIVE; URINE METHADONE SCREEN NEGATIVE; URINE OPIATES LOW UNCONFIRMED POSITIVE; URINE PHENCYCLIDINE SCREEN NEGATIVE
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
--- NOTE | 2017-02-14 14:07 | ER Document Report ---
Doctor's Note Notes: 02/14/17 14:06 Nurse came to me and said that a urine that was ordered on the patient yesterday after Dr. Diane did a medical screening exam showed a urinary tract infection she talked to Dr. Diane who is here today and he was unwilling to write a prescription want her reevaluated the patient refused to be evaluated and so I had the nurse call her back tell her that the urine from yesterday was positive. Asked her to tell the patient that she needs to return to the emergency department for evaluation pelvic examination and further determination but the urinary tract needs to be treated with Macrobid twice a day. The nurse stated she would follow up on this.
== END 2017-02-14 09:00 | disposition left against medical advice (07) ==
LOC: ER 04:28
DX: Z53.9 Procedure and treatment not carried out, unspecified reason (principal); R10.9 Unspecified abdominal pain
CPT/HCPCS: 80307; 81001; 81025; 99281

== ENCOUNTER 2017-02-25 13:25 | Emergency (ER) | payer SELFPAY ==
[2017-02-25] MEDS ORDERED: ONDANSETRON 4 MG TAB.RAPDIS PO ONE (14:15)
[2017-02-25] MEDS ORDERED: OXYCODONE-ACETAMINOPHEN 5-325 MG TABLET PO ONE (14:15)
--- NOTE | 2017-02-25 14:24 | ER Document Report ---
ED Medical Screen (RME) - General Chief Complaint: Vaginal Bleeding Stated Complaint: ABNORMAL MENSTRAL WITH PAIN TRAVEL OUTSIDE OF THE [place] IN LAST 30 DAYS: No - HPI Onset: Other - 5 DAYS Onset/Duration: Gradual Quality of pain: Cramping Severity: Moderate Associated Symptoms: Vaginal bleeding Exacerbated by: Denies Relieved by: Denies Recently seen / treated by doctor: Yes - 4 d AGO, E.D. IN [place] - Related Data Allergies/Adverse Reactions: latex [Latex] Allergy (Severe, Verified 02/25/17 14:07) swelling,burning trazodone [Trazodone] Allergy (Intermediate, Verified 02/25/17 14:07) Hives ibuprofen Allergy (Verified 02/25/17 14:07) ketorolac [From Toradol] Allergy (Verified 02/25/17 14:07) tramadol [Tramadol] Allergy (Verified 02/25/17 14:07) ondansetron HCl [From Zofran] Adverse Reaction (Intermediate, Verified 02/25/17 14:07) GI upset hydrocodone bitartrate [From Vicodin] Adverse Reaction (Verified 02/25/17 14:07) GI upset Past Medical History - General Information source: Patient Last Menstrual Period: December 2016 - Social History Family history: Reviewed & Not Pertinent, Other - Her sisters all have dysmenorrhea - Past Medical History Cardiac Medical History: Denies: Hx Pulmonary Embolism Pulmonary Medical History: Reports: Hx Asthma - exercise induced Denies: Hx Sleep Apnea, Hx Tuberculosis Renal/ Medical History: Reports: Hx Ovarian Cysts - PCOS. Denies: Hx Peritoneal Dialysis GI Medical History: Reports: Hx Gastroesophageal Reflux Disease, Hx Ulcer Musculoskeltal Medical History: Reports Hx Musculoskeletal Deformity - Scoliosis , Reports Hx Musculoskeletal Trauma - Sprains of knee and hip Psychiatric Medical History: Reports: Hx Attention Deficit Hyperactivity Disorder, Hx Bipolar Disorder - age 9, Hx Personality Disorder, Hx Post Traumatic Stress Disorder, Hx Schizophrenia Denies: Hx Depression Past Surgical History: Reports: Hx Breast Surgery, Hx Cardiac Surgery, Hx Section - x2, Hx Tubal Ligation. Denies: Hx Hysterectomy, Hx Pacemaker - Immunizations Immunizations up to date: Yes Hx Diphtheria, Pertussis, Tetanus Vaccination: Yes - received in 2009 Review of Systems - Review of Systems Constitutional: Weakness. denies: Chills, Fever EENT: No symptoms reported Cardiovascular: No symptoms reported Respiratory: No symptoms reported Female Genitourinary: See HPI Musculoskeletal: No symptoms reported Skin: No symptoms reported Neurological/Psychological: No symptoms reported Physical Exam - Vital signs Vitals: Temp Pulse Resp BP Pulse Ox 98.6 F 83 16 121/96 H 99 02/25/17 13:35 02/25/17 13:35 02/25/17 13:35 02/25/17 13:35 02/25/17 13:35 Interpretation: Hypertensive. No: Tachycardic, Tachypneic, Febrile - General General appearance: Alert In distress: Mild - HEENT Head: Normocephalic Eyes: Normal Ears: Normal Nasal: Normal Mouth/Lips: Normal Mucous membranes: Normal - Respiratory Respiratory status: No respiratory distress Course - Vital Signs Vital signs: Temp Pulse Resp BP Pulse Ox 98.6 F 83 16 121/96 H 99 02/25/17 13:35 02/25/17 13:35 02/25/17 13:35 02/25/17 13:35 02/25/17 13:35
[2017-02-25 14:47] LABS: ABSOLUTE BASOPHILS # (AUTO) 0.1 10^3/uL (0.0-0.2); ABSOLUTE EOSINOPHILS # (AUTO) 0.2 10^3/uL (0.0-0.6); ABSOLUTE LYMPHOCYTES (AUTO) 2.2 10^3/uL (0.5-4.7); ABSOLUTE MONOCYTES (AUTO) 0.4 10^3/uL (0.1-1.4); ABSOLUTE NEUT (AUTO) 4.8 10^3/uL (1.7-8.2); EOSINOPHILS % (AUTO) 2.2 % (0-6); HEMATOCRIT 41.3 % (36.0-47.0); HEMOGLOBIN 13.6 g/dL (12.0-15.5); HGB HCT DIFFERENCE -0.5; LYMPHOCYTES % (AUTO) 29.3 % (13-45); MEAN CORPUSCULAR HEMOGLOBIN 30.3 pg (27.0-33.4); MEAN CORPUSCULAR VOLUME 92 fl (80-97); RED CELL DISTRIBUTION WIDTH 15.8 % (11.5-14.0); SEGMENTED NEUTROPHILS % (AUTO) 62.5 % (42-78); WHITE BLOOD COUNT 7.6 10^3/uL (4.0-10.5)
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
[2017-02-25 15:11] LABS: ALANINE AMINOTRANSFERASE 23 U/L (9-52); ALBUMIN 4.2 g/dL (3.5-5.0); ALKALINE PHOSPHATASE 75 U/L (38-126); ANION GAP 13 (5-19); ASPARTATE AMINO TRANSFERASE 12 U/L (14-36); BILIRUBIN,DIRECT 0.4 mg/dL (0.0-0.4); BILIRUBIN,TOTAL 0.6 mg/dL (0.2-1.3); BLOOD UREA NITROGEN 9 mg/dL (7-20); CALCIUM 9.5 mg/dL (8.4-10.2); CARBON DIOXIDE 26 mmol/L (22-30); CHLORIDE 105 mmol/L (98-107); CREATININE RESULT 0.73 mg/dL (0.52-1.25); GLUCOSE 92 mg/dL (75-110); POTASSIUM 4.5 mmol/L (3.6-5.0); SODIUM 144.4 mmol/L (137-145); TOTAL PROTEIN 7.1 g/dL (6.3-8.2)
[2017-02-25 16:32] LABS: APPEARANCE,URINE CLEAR; BILIRUBIN,URINE NEGATIVE (NEGATIVE); GLUCOSE, URINE NEGATIVE (NEGATIVE); KETONES,URINE TRACE mg/dL (NEGATIVE); LEUKOCYTE ESTERASE,URINE NEGATIVE (NEGATIVE); NITRITE,URINE NEGATIVE (NEGATIVE); PROTEIN,URINE NEGATIVE (NEGATIVE); URINE SPECIFIC GRAVITY 1.015; UROBILINOGEN,URINE NEGATIVE mg/dL (<2.0)
[2017-02-25 18:39] VITALS: BP 102/72
[2017-02-25 19:36] LABS: CHLAM PCR NOT DETECTED (NOT DETECT)
== END 2017-02-25 18:40 | disposition home or self-care (01) ==
LOC: ER 13:25
DX: N94.6 Dysmenorrhea, unspecified (principal); N93.9 Abnormal uterine and vaginal bleeding, unspecified; R10.32 Left lower quadrant pain; F17.200 Nicotine dependence, unspecified, uncomplicated
CPT/HCPCS: 36415; 51701; 76830; 80053; 81001; 84703; 85025; 87210; 87491; 87591; 93976; 99284

== ENCOUNTER 2017-07-14 20:13 | Emergency (ER) | payer SELFPAY ==
[2017-07-14 20:35] VITALS: BP 105/72
[2017-07-14] MEDS ORDERED: PREDNISONE 20 MG TABLET PO ONE (22:33)
[2017-07-14] MEDS ORDERED: ACETAMINOPHEN 325 MG TABLET PO ONE (22:33)
[2017-07-14] MEDS ORDERED: LIDOCAINE 5% (700 MG) TRANSDERMAL ADH..PATCH TP ONE (22:33)
--- NOTE | 2017-07-14 22:46 | ER Document Report ---
ED General - General Chief Complaint: Back Pain Stated Complaint: BACK PAIN Time Seen by Provider: 07/14/17 22:21 Notes: Patient is a 31-year-old female who presents with 3 weeks of low back pain as well as bilateral lower extremity pain. States this started after she was thrown off of a horse landing onto her back 3 weeks ago. States that she was improving but then reinjured her back when she attempted to lift a saddle up onto a horse. States that since that time she has had a severe, constant, throbbing pain to her bilateral low and mid back with a shooting, burning pain radiating into her bilateral lower extremities. She denies any focal weakness, numbness, although states sometimes her legs "just give out on me". She has not had any bowel or bladder incontinence. No IV drug use or fever. She has been trying [id number] medications with minimal improvement of her pain. Any movement or bending over worsens her pain. She has a history of prior back injuries including a sciatic nerve irritation. She has not seen her primary care doctor regarding today's concerns. TRAVEL OUTSIDE OF THE [place] IN LAST 30 DAYS: No - Related Data Allergies/Adverse Reactions: latex [Latex] Allergy (Severe, Verified 02/25/17 14:07) swelling,burning trazodone [Trazodone] Allergy (Intermediate, Verified 02/25/17 14:07) Hives ibuprofen Allergy (Verified 02/25/17 14:07) ketorolac [From Toradol] Allergy (Verified 02/25/17 14:07) tramadol [Tramadol] Allergy (Verified 02/25/17 14:07) ondansetron HCl [From Zofran] Adverse Reaction (Intermediate, Verified 02/25/17 14:07) GI upset hydrocodone bitartrate [From Vicodin] Adverse Reaction (Verified 02/25/17 14:07) GI upset Past Medical History - General Information source: Patient - Social History Smoking Status: Never Smoker Frequency of alcohol use: None Drug Abuse: None Lives with: Spouse/Significant other Family History: Arthritis, CAD, DM, Hyperlipidemia, Hypertension, Malignancy, Thyroid Disfunction Patient has suicidal ideation: No Patient has homicidal ideation: No - Past Medical History Cardiac Medical History: Denies: Hx Pulmonary Embolism Pulmonary Medical History: Reports: Hx Asthma - exercise induced Denies: Hx Sleep Apnea, Hx Tuberculosis Renal/ Medical History: Reports: Hx Ovarian Cysts - PCOS. Denies: Hx Peritoneal Dialysis GI Medical History: Reports: Hx Gastroesophageal Reflux Disease, Hx Ulcer Musculoskeltal Medical History: Reports Hx Musculoskeletal Deformity - Scoliosis , Reports Hx Musculoskeletal Trauma - Sprains of knee and hip Psychiatric Medical History: Reports: Hx Attention Deficit Hyperactivity Disorder, Hx Bipolar Disorder - age 9, Hx Personality Disorder, Hx Post Traumatic Stress Disorder, Hx Schizophrenia Denies: Hx Depression Past Surgical History: Reports: Hx Breast Surgery, Hx Cardiac Surgery, Hx Section - x2, Hx Tubal Ligation. Denies: Hx Hysterectomy, Hx Pacemaker - Immunizations Immunizations up to date: Yes Hx Diphtheria, Pertussis, Tetanus Vaccination: Yes - received in 2009 Hx Pneumococcal Vaccination: 08/27/12 Review of Systems - Review of Systems Notes: Constitutional: Negative for fever. HENT: Negative for sore throat. Eyes: Negative for visual changes. Cardiovascular: Negative for chest pain. Respiratory: Negative for shortness of breath. Gastrointestinal: Negative for abdominal pain, vomiting or diarrhea. Genitourinary: Negative for dysuria. Musculoskeletal: positive for back pain. Skin: Negative for rash. Neurological: Negative for headaches, weakness or numbness. 10 point ROS negative except as marked above and in HPI. Physical Exam - Vital signs Vitals: Temp Pulse Resp BP Pulse Ox 99.0 F 113 H 20 105/72 100 07/14/17 20:33 07/14/17 20:33 07/14/17 20:33 07/14/17 20:33 07/14/17 20:33 Interpretation: Tachycardic Notes: PHYSICAL EXAMINATION: GENERAL: Well-appearing, well-nourished and in no acute distress. HEAD: Atraumatic, normocephalic. EYES: Pupils equal round and reactive to light, extraocular movements intact, sclera anicteric, conjunctiva are normal. ENT: nares patent, oropharynx clear without exudates. Moist mucous membranes. NECK: Normal range of motion, supple without lymphadenopathy LUNGS: Breath sounds clear to auscultation bilaterally and equal. No wheezes rales or rhonchi. HEART: Regular rate and rhythm without murmurs ABDOMEN: Soft, nontender, normoactive bowel sounds. No guarding, no rebound. No masses appreciated. EXTREMITIES: Normal range of motion, no pitting or edema. No cyanosis. Back: No midline spinal tenderness, step-offs or deformities NEUROLOGICAL: 5 out of 5 strength both distally and proximally bilateral lower extremities. 2+ patellar reflexes bilaterally. No clonus. Sensation grossly intact in the bilateral lower extremities. Patient is able to ambulate without difficulty. PSYCH: Normal mood, normal affect. SKIN: Warm, Dry, normal turgor, no rashes or lesions noted. Course - Re-evaluation Re-evalutation: 07/14/17 22:45 Presentation of a well appearing patient complaining of acute on chronic back pain. No rapid progression of symptoms, systemic symptoms including fevers, chills, weight loss, history of recent bacterial infection, bilateral symptoms, numbness, weakness, difficulty walking, urinary retention or bowel incontinence , personal history of cancer, immunosuppression, diabetes, known AAA, or history of IV drug use. Exam is without point tenderness over vertebral bodies , pulsatile abdominal mass, and patient has symmetric and intact lower extremity strength, sensation, and reflexes without clonus. 2+ symmetric medial malleolar and dorsalis pedis pulses Based on history and physical, I have a very low suspicion of a concerning etiology of pain including epidural compression syndrome, spinal infection, transverse myelitis, malignancy, abdominal aortic aneurysm, renal colic, acute lower extremity claudication, neurogenic claudication, ankylosing spondylitis, or other intra-abdominal process. Due to absence of concerning risk factors in history and physical as well as absence of rapidly progressive, severe, or bilateral symptoms, will defer imaging at this point. Patient has a history of recurrent visits to the emergency department for chronic pain issues. Due to her NSAID allergy, will start on a short course of prednisone and Lidoderm patches. At this time will discharge with return precautions and follow-up recommendations. Verbal discharge instructions given a the bedside and opportunity for questions given. Medication warnings reviewed. Patient is in agreement with this plan and has verbalized understanding of return precautions and the need for primary care follow-up in the next 24-72 hours. - Vital Signs Vital signs: Temp Pulse Resp BP Pulse Ox 99.0 F 113 H 20 105/72 100 07/14/17 20:33 07/14/17 20:33 07/14/17 20:33 07/14/17 20:33 07/14/17 20:33 Discharge - Discharge Clinical Impression: Low back pain Qualifiers: Chronicity: acute Back pain laterality: unspecified Sciatica presence: with sciatica Sciatica laterality: sciatica laterality unspecified Qualified Code(s) : M54.40 - Lumbago with sciatica, unspecified side Condition: Good Disposition: HOME, SELF-CARE Additional Instructions: You have been seen in the Emergency Department (ED) today for back pain. Your workup and exam have not shown any acute abnormalities and you are likely suffering from muscle strain or possible problems with your discs, but there is no treatment that will fix your symptoms at this time. Please take the steroids as prescribed. You should also purchase a local lidocaine cream such as "aspercreme with lidocaine" and use per bottle instructions to the affected area. Apply heat to the area as often as you are able. Continue to keep active and avoid prolonged periods of bed rest. Please follow up with your doctor as soon as possible regarding today's ED visit and your back pain. Return to the ED for worsening back pain, fever, weakness or numbness of either leg, or if you develop either (1) an inability to urinate or have bowel movements, or (2) loss of your ability to control your bathroom functions (if you start having "accidents"), or if you develop other new symptoms that concern you.concern you. Prescriptions: Prednisone [Deltasone 20 mg Tablet] 2 tab PO DAILY 5 Days tablet
[2017-07-14] MEDS ORDERED: MORPHINE SULFATE IR 15 MG TABLET ONE (23:09)
== END 2017-07-14 23:14 | disposition home or self-care (01) ==
LOC: ER 20:13
DX: M54.40 Lumbago with sciatica, unspecified side (principal); M54.9 Dorsalgia, unspecified; M79.604 Pain in right leg; M79.605 Pain in left leg
CPT/HCPCS: 99283; J7512

== ENCOUNTER 2017-07-15 20:18 | Emergency (ER) | payer SELFPAY ==
[2017-07-15] MEDS ORDERED: DIAZEPAM INJ 10 MG/2 ML DISP.SYRIN IM ONE (22:20)
[2017-07-15] MEDS ORDERED: FAMOTIDINE 20 MG TABLET PO ONE (22:20)
[2017-07-15 22:22] LABS: AMORPHOUS SEDIMENT,URINE TRACE /HPF; APPEARANCE,URINE CLOUDY; BILIRUBIN,URINE NEGATIVE (NEGATIVE); GLUCOSE, URINE NEGATIVE (NEGATIVE); KETONES,URINE NEGATIVE (NEGATIVE); LEUKOCYTE ESTERASE,URINE TRACE (NEGATIVE); NITRITE,URINE POSITIVE (NEGATIVE); PROTEIN,URINE NEGATIVE (NEGATIVE); URINE SPECIFIC GRAVITY 1.019; UROBILINOGEN,URINE NEGATIVE mg/dL (<2.0)
[2017-07-15] MEDS ORDERED: CEPHALEXIN 500 MG CAPSULE PO ONE (22:51)
--- NOTE | 2017-07-15 22:56 | ER Document Report ---
ED General - General Chief Complaint: Back Pain Stated Complaint: BACK PAIN Time Seen by Provider: 07/15/17 21:34 Notes: Patient is a 31 year old female that comes to the ED for chief complaint of pain in her mid and lower back. She also states her legs are numb and when she got up this morning she accidentally urinated on herself. She states she has not urinated all day since that time. She denies fecal incontinence. She was seen here yesterday, was placed on prednisone, she states she threw it up after taking it today. She states she was thrown from a horse 3 weeks ago, about 1.5 weeks ago she lifted a saddle and "re-pulled" her back. She denies re-injury, fever, IV drug abuse. She denies any daily medications, denies any surgeries. TRAVEL OUTSIDE OF THE [place] IN LAST 30 DAYS: No - Related Data Allergies/Adverse Reactions: latex [Latex] Allergy (Severe, Verified 07/15/17 20:21) swelling,burning trazodone [Trazodone] Allergy (Intermediate, Verified 07/15/17 20:21) Hives ibuprofen Allergy (Verified 07/15/17 20:21) ketorolac [From Toradol] Allergy (Verified 07/15/17 20:21) tramadol [Tramadol] Allergy (Verified 07/15/17 20:21) ondansetron HCl [From Zofran] Adverse Reaction (Intermediate, Verified 07/15/17 20:21) GI upset hydrocodone bitartrate [From Vicodin] Adverse Reaction (Verified 07/15/17 20:21) GI upset Past Medical History - General Information source: Patient - Social History Smoking Status: Current Every Day Smoker Chew tobacco use (# tins/day): No Frequency of alcohol use: None Drug Abuse: None Lives with: Family Family History: Arthritis, CAD, DM, Hyperlipidemia, Hypertension, Malignancy, Thyroid Disfunction Patient has suicidal ideation: No Patient has homicidal ideation: No - Past Medical History Cardiac Medical History: Denies: Hx Pulmonary Embolism Pulmonary Medical History: Reports: Hx Asthma - exercise induced Denies: Hx Sleep Apnea, Hx Tuberculosis Renal/ Medical History: Reports: Hx Ovarian Cysts - PCOS. Denies: Hx Peritoneal Dialysis GI Medical History: Reports: Hx Gastroesophageal Reflux Disease, Hx Ulcer Musculoskeltal Medical History: Reports Hx Musculoskeletal Deformity - Scoliosis , Reports Hx Musculoskeletal Trauma - Sprains of knee and hip Psychiatric Medical History: Reports: Hx Attention Deficit Hyperactivity Disorder, Hx Bipolar Disorder - age 9, Hx Personality Disorder, Hx Post Traumatic Stress Disorder, Hx Schizophrenia Denies: Hx Depression Past Surgical History: Reports: Hx Breast Surgery - implants 2003, Hx Cardiac Surgery, Hx Section - x2, Hx Tubal Ligation. Denies: Hx Hysterectomy, Hx Pacemaker - Immunizations Immunizations up to date: Yes Hx Diphtheria, Pertussis, Tetanus Vaccination: Yes - received in 2009 Hx Pneumococcal Vaccination: 08/27/12 Review of Systems - Review of Systems Constitutional: No symptoms reported EENT: No symptoms reported Cardiovascular: No symptoms reported Respiratory: No symptoms reported Gastrointestinal: No symptoms reported Genitourinary: No symptoms reported Female Genitourinary: No symptoms reported Musculoskeletal: See HPI Skin: No symptoms reported Hematologic/Lymphatic: No symptoms reported Neurological/Psychological: See HPI Physical Exam - Vital signs Vitals: Temp Pulse Resp BP Pulse Ox 98.8 F 101 H 18 113/71 100 07/15/17 20:21 07/15/17 20:21 07/15/17 20:21 07/15/17 20:21 07/15/17 20:21 Interpretation: Normal - General General appearance: Appears well, Alert In distress: None - patient lying on the bed, does not appear to be in distress - HEENT Head: Normocephalic, Atraumatic Eyes: Normal Conjunctiva: Normal Extraocular movements intact: Yes Eyelashes: Normal Pupils: PERRL Sinus: Normal Nasal: Normal Mouth/Lips: Normal Mucous membranes: Normal Pharynx: Normal Neck: Normal - Respiratory Respiratory status: No respiratory distress Chest status: Nontender Breath sounds: Normal. No: Decreased air movement, Wheezing Chest palpation: Normal - Cardiovascular Rhythm: Regular. No: Tachycardia Heart sounds: Normal auscultation, S1 appreciated, S2 appreciated Murmur: No - Abdominal Inspection: Normal Distension: No distension Bowel sounds: Normal Tenderness: Nontender. No: Tender, Guarding, Rebound Organomegaly: No organomegaly - Rectal Stool: No: Black, Bloody - Back Back: Tender - There is tenderness in the bilateral paraspinal muscles along the thoracic and lumbar musculature, I do not appreciate any CVA tenderness, no midline tenderness of the back, no saddle anesthesia, normal upper and lower extremity strength, distal vascular exam is normal but patient reports she cannot feel anything on any parts of her legs.. No: Vertebra tenderness - Extremities General upper extremity: Normal inspection, Nontender, Normal color, Normal ROM , Normal temperature General lower extremity: Normal inspection, Nontender, Normal color, Normal ROM , Normal temperature, Normal weight bearing. 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 She was wheeled in on a chair to the room. Reporting total numbness to the leg on neurological exam, although able to move with normal strength. JANNA Cortez to bedside, checked rectal tone after consent by patient, patient not performing any rectal tone. I asked nurse in triage if patient had stood, she states she got up to obtain her weight and then got back in the wheelchair. I went back to the patient and told her that I was told that she was standing in triage, I asked her to stand, she agreed this time, she does have sensation in the lower extremities. I explained her that I am concerned about spinal cord involvement and I need to make sure she has good rectal tone and she needs to urinate, if she is unable to perform these things she needs an MRI, I am not able to perform an MRI at this facility tonight and patient would most likely need to be transferred. There is back to bedside, patient performed a normal rectal tone, patient was able to give me a urine sample without any difficulty. Very low suspicion of spinal cord involvement or any red flag symptom abnormalities based on this. I do suspect patient has muscular flank pain, possible herniated disc based on her symptoms and mechanism. No indication for imaging. Urinalysis obtained, shows urinary tract infection. Discussed with patient, advised these could also be involved with her symptoms. Patient will be placed on antibiotics, given Pepcid so she continue the prednisone, discussed follow-up , discussed return precautions. Patient and significant other state understanding and agreement. - Vital Signs Vital signs: Temp Pulse Resp BP Pulse Ox 98.7 F 83 16 100/67 99 07/15/17 23:10 07/15/17 23:10 07/15/17 23:10 07/15/17 23:10 07/15/17 23:10 - Laboratory Laboratory results interpreted by me: 07/15/17 21:50 Urine Nitrite POSITIVE H Ur Leukocyte Esterase TRACE H Discharge - Discharge Clinical Impression: Back pain Qualifiers: Back pain location: thoracic back pain Chronicity: unspecified Back pain laterality: bilateral Qualified Code(s): M54.6 - Pain in thoracic spine Urinary tract infection Qualifiers: Urinary tract infection type: site unspecified Hematuria presence: without hematuria Qualified Code(s): N39.0 - Urinary tract infection, site not specified Condition: Stable Disposition: HOME, SELF-CARE Additional Instructions: Your symptoms are probably a combination of the lower back pain (possibly a herniated disc) and a urinary tract infection. Take Keflex antibiotic to completion. Take the prednisone as prescribed, take the pepcid with it to avoid GI upset. Follow up with primary care. Return to the emergency department for any concerning or worsening symptoms including fever, uncontrolled vomiting, incontinence, new numbness, or any other concerning symptoms. Prescriptions: Cephalexin Monohydrate [Keflex 500 mg Capsule] 500 mg PO BID #10 capsule Famotidine [Pepcid 20 mg Tablet] 20 mg PO BID #12 tablet
[2017-07-15 23:11] VITALS: BP 100/67
== END 2017-07-15 23:11 | disposition home or self-care (01) ==
LOC: ER 20:18
DX: M54.6 Pain in thoracic spine (principal); N39.0 Urinary tract infection, site not specified; M54.5 Low back pain; R32 Unspecified urinary incontinence; R11.10 Vomiting, unspecified; F17.200 Nicotine dependence, unspecified, uncomplicated; J45.909 Unspecified asthma, uncomplicated; Z91.040 Latex allergy status; Z88.8 Allergy status to other drugs, medicaments and biological substances; Z88.6 Allergy status to analgesic agent; Z88.5 Allergy status to narcotic agent
CPT/HCPCS: 99283; 96372; 81025; 81001; J3360

== ENCOUNTER 2017-08-13 01:30 | Emergency (ER) | payer SELFPAY ==
[2017-08-13] MEDS ORDERED: NORMAL SALINE 1000 ML 1,000 ML IV ONE (02:20)
[2017-08-13] MEDS ORDERED: DIAZEPAM INJ 10 MG/2 ML DISP.SYRIN IV ONE (02:21)
--- NOTE | 2017-08-13 02:21 | ER Document Report ---
ED Neck/Back Problem - General Mode of Arrival: Ambulatory Information source: Patient TRAVEL OUTSIDE OF THE [place] IN LAST 30 DAYS: No - HPI Patient complains to provider of: Pain, Lower back Onset: Other - 2.5-3 months ago Context: Other - see notes above Associated symptoms: Other - see notes above <JURGEN BIGGS - Last Filed: 08/13/17 03:25> <YARON CARIAS - Last Filed: 08/13/17 05:39> - General Chief Complaint: Back Pain Stated Complaint: BACK INJURY/PAIN Time Seen by Provider: 08/13/17 01:47 Notes: 31 year old female with history of lower back pain secondary to falling off a horse 3 months ago presents to the ED complaining of midline lower back pain that started 3 months ago. Patient reports that she has used heating pads and lidocaine patches, but to no relief. Patient has been seen in the ED (2016 and 07/15/2017) and was told she may have a herniated disc. Since the visit the patient states her pain has worsened, that she is falling more, has decreased urine output, and has been 'losing' her eyesight. Patient describes her pain as a 'shocking, stabbing' feeling and also complains of a 'shaking' from head to toe. Patient reports taking Tylenol at [id number] last night. (JURGEN BIGGS) - Related Data Allergies/Adverse Reactions: latex [Latex] Allergy (Severe, Verified 07/15/17 20:21) swelling,burning trazodone [Trazodone] Allergy (Intermediate, Verified 07/15/17 20:21) Hives ibuprofen Allergy (Verified 07/15/17 20:21) ketorolac [From Toradol] Allergy (Verified 07/15/17 20:21) tramadol [Tramadol] Allergy (Verified 07/15/17 20:21) ondansetron HCl [From Zofran] Adverse Reaction (Intermediate, Verified 07/15/17 20:21) GI upset hydrocodone bitartrate [From Vicodin] Adverse Reaction (Verified 07/15/17 20:21) GI upset Past Medical History - General Information source: Patient - Social History Smoking Status: Unknown if Ever Smoked Family History: Arthritis, CAD, DM, Hyperlipidemia, Hypertension, Malignancy, Thyroid Disfunction Patient has suicidal ideation: No Patient has homicidal ideation: No - Past Medical History Cardiac Medical History: Denies: Hx Pulmonary Embolism Pulmonary Medical History: Reports: Hx Asthma - exercise induced Denies: Hx Sleep Apnea, Hx Tuberculosis Renal/ Medical History: Reports: Hx Ovarian Cysts - PCOS. Denies: Hx Peritoneal Dialysis GI Medical History: Reports: Hx Gastroesophageal Reflux Disease, Hx Ulcer Musculoskeltal Medical History: Reports Hx Musculoskeletal Deformity - Scoliosis , Reports Hx Musculoskeletal Trauma - Sprains of knee and hip Psychiatric Medical History: Reports: Hx Attention Deficit Hyperactivity Disorder, Hx Bipolar Disorder - age 9, Hx Personality Disorder, Hx Post Traumatic Stress Disorder, Hx Schizophrenia Denies: Hx Depression Past Surgical History: Reports: Hx Breast Surgery - implants 2003, Hx Cardiac Surgery, Hx Section - x2, Hx Tubal Ligation. Denies: Hx Hysterectomy, Hx Pacemaker - Immunizations Immunizations up to date: Yes Hx Diphtheria, Pertussis, Tetanus Vaccination: Yes - received in 2009 Hx Pneumococcal Vaccination: 08/27/12 <JURGEN BIGGS - Last Filed: 08/13/17 03:25> Review of Systems - Review of Systems Constitutional: No symptoms reported EENT: No symptoms reported Cardiovascular: No symptoms reported Respiratory: No symptoms reported Gastrointestinal: No symptoms reported Genitourinary: See HPI, Other - decreased urine output Female Genitourinary: No symptoms reported Musculoskeletal: See HPI, Back pain - lower Skin: No symptoms reported Hematologic/Lymphatic: No symptoms reported Neurological/Psychological: No symptoms reported -: Yes All other systems reviewed and negative <JURGEN BIGGS - Last Filed: 08/13/17 03:25> Physical Exam - Vital signs Interpretation: Normal - General General appearance: Appears well, Alert - HEENT Head: Normocephalic, Atraumatic Eyes: Normal Pupils: PERRL - Respiratory Respiratory status: No respiratory distress Chest status: Nontender Breath sounds: Normal Chest palpation: Normal - Cardiovascular Rhythm: Regular Heart sounds: Normal auscultation Murmur: No - Abdominal Inspection: Normal Distension: No distension Bowel sounds: Normal Tenderness: Nontender Organomegaly: No organomegaly - Back Back: Normal, Tender - L3-5 paraspinal b/l - Extremities General upper extremity: Normal inspection, Nontender, Normal color, Normal ROM , Normal temperature General lower extremity: Normal inspection, Nontender, Normal color, Normal ROM , Normal temperature, Normal weight bearing. No: Ruslan's sign Shoulder: Normal Arm: Normal Elbow: Normal Forearm: Normal Wrist: Normal Hand: Normal Hip: Normal Thigh: Normal Knee: Normal Calf: Normal Ankle: Normal Foot: Normal - Neurological Neuro grossly intact: Yes Cognition: Normal Orientation: AAOx4 [place] Coma Scale Eye Opening: Spontaneous [place] Coma Scale Verbal: Oriented [place] Coma Scale Motor: Obeys Commands [place] Coma Scale Total: 15 Speech: Normal Cranial nerves: Normal Motor strength normal: LUE, RUE, LLE, RLE Additional motor exam normals: Equal custodial supervisor, Dorsiflexion, Plantar flexion. No: Involuntary movements, Weakness Sensory: Normal - Psychological Associated symptoms: Normal affect, Normal mood - Skin Skin Temperature: Warm Skin Moisture: Dry Skin Color: Normal <YARON CARIAS - Last Filed: 08/13/17 05:39> - Vital signs Vitals: Temp Pulse Resp BP Pulse Ox 99.5 F 105 H 18 115/70 98 08/13/17 01:39 08/13/17 01:39 08/13/17 01:39 08/13/17 01:39 08/13/17 01:39 Course - Laboratory Result Diagrams: 08/13/17 02:30 08/13/17 02:30 <JURGEN BIGGS - Last Filed: 08/13/17 03:25> - Laboratory Result Diagrams: 08/13/17 02:30 08/13/17 02:30 - Diagnostic Test Radiology reviewed: Reports reviewed <YARON CARIAS - Last Filed: 08/13/17 05:39> - Re-evaluation Re-evalutation: 08/13/17 Patient is a 31-year-old female who comes in complaining of lower back pain. Patient hurt her back a few months ago and has had exacerbation since then. Patient is complaining of pain down her legs. She is able to ambulate. No urinary retention or incontinence. No loss of bowel. Patient has not had an MRI and has not followed up with anybody. Blood work within normal limits. CT with no acute findings. Patient is completely neurovascularly intact with no evidence for cauda equina at this time. Patient will be given a referral for an outpatient MRI and to follow-up with a back specialist. Return if any worsening or concerning symptoms. Stable for discharge. (YARON CARIAS ) - Vital Signs Vital signs: Temp Pulse Resp BP Pulse Ox 99.5 F 105 H 18 115/70 98 08/13/17 01:39 08/13/17 01:39 08/13/17 01:39 08/13/17 01:39 08/13/17 01:39 - Laboratory Laboratory results interpreted by me: 08/13/17 08/13/17 08/13/17 02:30 02:30 02:30 WBC 12.0 H RDW 14.7 H Sodium 145.9 H Chloride 111 H Total Protein 5.9 L Urine Nitrite POSITIVE H Discharge <JURGEN BIGGS - Last Filed: 08/13/17 03:25> <YARON CARIAS - Last Filed: 08/13/17 05:39> - Discharge Clinical Impression: Low back pain Qualifiers: Chronicity: unspecified Back pain laterality: bilateral Sciatica presence: with sciatica Sciatica laterality: bilateral sciatica Qualified Code(s): M54.42 - Lumbago with sciatica, left side; M54.41 - Lumbago with sciatica, right side; M54.41 - Lumbago with sciatica, right side Condition: Stable Disposition: HOME, SELF-CARE Instructions: Low Back Pain ([facility]) Prescriptions: Oxycodone HCl/Acetaminophen [Percocet 5-325 mg Tablet] 1 tab PO Q6HP PRN #15 tablet PRN Reason: Carisoprodol [Soma] 350 mg PO DAILYP PRN #10 tablet PRN Reason: Forms: Follow-Up Radiology Testing Referrals: VIKI LEMA MD [ACTIVE STAFF] - Follow up in 1 week Scribe Attestation: 08/13/17 05:38 I personally performed the services described in the documentation, reviewed and edited the documentation which was dictated to the scribe in my presence, and it accurately records my words and actions. (YARON CARIAS) Scribe Documentation - Scribe Written by Scribe:: Jake Bryson, 08/13/2017 0331 acting as scribe for :: Leila <JURGEN BIGGS - Last Filed: 08/13/17 03:25>
[2017-08-13 02:48] LABS: ABSOLUTE BASOPHILS # (AUTO) 0.1 10^3/uL (0.0-0.2); ABSOLUTE EOSINOPHILS # (AUTO) 0.2 10^3/uL (0.0-0.6); ABSOLUTE LYMPHOCYTES (AUTO) 3.1 10^3/uL (0.5-4.7); ABSOLUTE MONOCYTES (AUTO) 0.7 10^3/uL (0.1-1.4); ABSOLUTE NEUT (AUTO) 7.8 10^3/uL (1.7-8.2); BASOPHILS % (AUTO) 0.8 % (0-2); EOSINOPHILS % (AUTO) 1.9 % (0-6); HEMATOCRIT 39.3 % (36.0-47.0); HEMOGLOBIN 13.1 g/dL (12.0-15.5); LYMPHOCYTES % (AUTO) 26.1 % (13-45); MEAN CORPUSCULAR HEMOGLOBIN 30.9 pg (27.0-33.4); MEAN CORPUSCULAR HGB CONC 33.4 g/dL (32.0-36.0); MEAN CORPUSCULAR VOLUME 92 fl (80-97); MONOCYTES % (AUTO) 5.9 % (3-13); RED BLOOD COUNT 4.25 10^6/uL (3.72-5.28); RED CELL DISTRIBUTION WIDTH 14.7 % (11.5-14.0); SEGMENTED NEUTROPHILS % (AUTO) 65.3 % (42-78)
[2017-08-13 03:12] LABS: APPEARANCE,URINE SLIGHTLY-CLOUDY; BILIRUBIN,URINE NEGATIVE (NEGATIVE); GLUCOSE, URINE NEGATIVE (NEGATIVE); KETONES,URINE NEGATIVE (NEGATIVE); LEUKOCYTE ESTERASE,URINE NEGATIVE (NEGATIVE); NITRITE,URINE POSITIVE (NEGATIVE); PROTEIN,URINE NEGATIVE (NEGATIVE); URINE SPECIFIC GRAVITY 1.018; UROBILINOGEN,URINE NEGATIVE mg/dL (<2.0)
[2017-08-13 03:20] LABS: ALANINE AMINOTRANSFERASE 24 U/L (9-52); ALBUMIN 3.6 g/dL (3.5-5.0); ALKALINE PHOSPHATASE 50 U/L (38-126); ANION GAP 11 (5-19); ASPARTATE AMINO TRANSFERASE 16 U/L (14-36); BILIRUBIN,DIRECT 0.3 mg/dL (0.0-0.4); BILIRUBIN,TOTAL 0.3 mg/dL (0.2-1.3); BLOOD UREA NITROGEN 9 mg/dL (7-20); CALCIUM 9.2 mg/dL (8.4-10.2); CARBON DIOXIDE 24 mmol/L (22-30); CHLORIDE 111 mmol/L (98-107); CREATININE RESULT 0.81 mg/dL (0.52-1.25); GLUCOSE 76 mg/dL (75-110); POTASSIUM 4.7 mmol/L (3.6-5.0); SODIUM 145.9 mmol/L (137-145); TOTAL PROTEIN 5.9 g/dL (6.3-8.2)
[2017-08-13] MEDS ORDERED: FENTANYL CITRATE INJ/PF 100 MCG/2 ML AMPUL IV ONE (03:53)
--- NOTE | 2017-08-13 04:36 | RADIOLOGY REPORT (SQ) ---
EXAM DESCRIPTION: CT ABD/PELVIS NO ORAL OR IV COMPLETED DATE/TIME: 08/13/2017 3:40 am REASON FOR STUDY: pain in back(T9 to L3) after falling onto fence, nausea COMPARISON: CT abdomen and pelvis 10/08/2011. TECHNIQUE: CT scan of the abdomen and pelvis performed without intravenous or oral contrast. Images reviewed with lung, soft tissue, and bone windows. Reconstructed coronal and sagittal MPR images revi ewed. All images stored on PACS. All CT scanners at this facility use dose modulation, iterative reconstruction, and/or weight based d osing when appropriate to reduce radiation dose to as low as reasonably achievable (ALARA). [facility]: Dose Right [facility]: CareDose [facility]: Dose Right [facility]: Teradose 4D [facility]: Smart Toodalu RADIATION DOSE: Up-to-date CT equipment and radiation dose reduction techniques were employed. CTDIv ol: 5.5 mGy. DLP: 297 mGy-cm.mGy. LIMITATIONS: None. FINDINGS: LOWER CHEST: No consolidation or pleural effusion. Partially visualized breast implants. NON-CONTRASTED LIVER, SPLEEN, ADRENALS: Evaluation limited by lack of IV contrast. No identified sign ificant masses. No perihepatic or perisplenic fluid. PANCREAS: No peripancreatic inflammatory changes. GALLBLADDER: Contracted. RIGHT KIDNEY AND URETER: No perinephric fluid. No significant calcifications. Prominent right yanni l pelvis, similar appearance with the comparison study. No hydronephrosis or hydroureter. LEFT KIDNEY AND URETER: No perinephric fluid. Nonobstructing 3 mm calculus at the interpolar region of the left kidney. No hydronephrosis or hydroureter. AORTA AND RETROPERITONEUM: No abdominal aortic aneurysm. No retroperitoneal masses or hemorrhage. BOWEL AND PERITONEAL CAVITY: No dilated bowel loops or inflammatory changes. No free fluid or free ai r. APPENDIX: Normal. PELVIS, BLADDER, AND ABDOMINAL WALL:The urinary bladder is partially decompressed. The uterus is ret roverted. No free fluid. Small fat containing umbilical hernia. BONES: No acute findings. The vertebral body heights and alignment are maintained within the visuali zed thoracolumbar spine. No compression fracture is noted. IMPRESSION: Nonobstructing left nephrolithiasis. No hydronephrosis. No acute findings on unenhance d CT. COMMENT: Quality ID # [id number]: Final reports with documentation of one or more dose reduction techniques (e.g., Automated exposure control, adjustment of the mA and/or kV according to patient size, use of iterative reconstruction technique) TECHNICAL DOCUMENTATION: JOB ID: [id number] [place]-64 2010 [employer]- All Rights Reserved
[2017-08-13] MEDS ORDERED: HYDROCODONE/ACETAMINOPHEN 5-325 MG 6 TAB/DSPK PO PRN (04:49)
[2017-08-13 05:07] VITALS: BP 106/66
== END 2017-08-13 05:05 | disposition home or self-care (01) ==
LOC: ER 01:30
DX: M54.42 Lumbago with sciatica, left side (principal); M54.41 Lumbago with sciatica, right side; Z91.040 Latex allergy status; Z88.6 Allergy status to analgesic agent; Z98.51 Tubal ligation status
CPT/HCPCS: 99284; 96361; 96374; 96375; 36415; 87086; 84702; 85025; 87088; 80053; 81001; 87186; 74176; J3360; J3010; J7030

== ENCOUNTER 2017-08-18 14:50 | Emergency (ER) | payer SELFPAY ==
[2017-08-18 15:13] VITALS: BP 102/63
--- NOTE | 2017-08-18 16:37 | ER Document Report ---
ED Neck/Back Problem - General Chief Complaint: Back Pain Stated Complaint: BACK PAIN,DIZZY,FAINTING SPELLS Time Seen by Provider: 08/18/17 16:09 Mode of Arrival: Ambulatory Information source: Patient Notes: 31-year-old female presents to ED for complaint of upper back pain 2 days after she was trying to crop picker a cat litter bag which caused her to have immediate back pain radiating down her lower back immediate dizziness and nausea with pain in her left leg. She has a history of frequent back pain and frequent visits to the emergency room. TRAVEL OUTSIDE OF THE [place] IN LAST 30 DAYS: No - HPI Patient complains to provider of: Pain, Upper back, Lower back. No: Injury Onset: Other - 2 days ago Where: Home Onset: Sudden Timing: Waxing and waning, Still present Quality of pain: Sharp Severity: Severe Pain Level: 5 Context: Lifting, Turning Recent injury: Possibly Associated symptoms: Like prior neck/back pain, Radiation to leg, Lower back pain, Upper back pain. denies: Incontinence, Motor loss, Numbness/tingling, Sensory loss, Sweaty, Unable to urinate Exacerbated by: Movement of trunk Relieved by: Nothing Similar symptoms previously: Yes Recently seen / treated by doctor: Yes - Related Data Allergies/Adverse Reactions: latex [Latex] Allergy (Severe, Verified 08/18/17 15:07) swelling,burning trazodone [Trazodone] Allergy (Intermediate, Verified 08/18/17 15:07) Hives ibuprofen Allergy (Verified 08/18/17 15:07) ketorolac [From Toradol] Allergy (Verified 08/18/17 15:07) tramadol [Tramadol] Allergy (Verified 08/18/17 15:07) ondansetron HCl [From Zofran] Adverse Reaction (Intermediate, Verified 08/18/17 15:07) GI upset hydrocodone bitartrate [From Vicodin] Adverse Reaction (Verified 08/18/17 15:07) GI upset Past Medical History - General Information source: Patient - Social History Smoking Status: Unknown if Ever Smoked Frequency of alcohol use: None Drug Abuse: None Lives with: Family Family History: Arthritis, CAD, DM, Hyperlipidemia, Hypertension, Malignancy, Thyroid Disfunction Patient has suicidal ideation: No Patient has homicidal ideation: No - Past Medical History Cardiac Medical History: Reports: None Pulmonary Medical History: Reports: Hx Asthma - exercise induced EENT Medical History: Reports: None Neurological Medical History: Reports: None Endocrine Medical History: Reports: None Renal/ Medical History: Reports: Hx Ovarian Cysts - PCOS Malignancy Medical History: Reports: None GI Medical History: Reports: Hx Gastroesophageal Reflux Disease, Hx Ulcer Musculoskeltal Medical History: Reports Hx Musculoskeletal Deformity - Scoliosis , Reports Hx Musculoskeletal Trauma - Sprains of knee and hip Skin Medical History: Reports None Psychiatric Medical History: Reports: Hx Attention Deficit Hyperactivity Disorder, Hx Bipolar Disorder - age 9, Hx Personality Disorder, Hx Post Traumatic Stress Disorder, Hx Schizophrenia Traumatic Medical History: Reports: None Infectious Medical History: Reports: None Past Surgical History: Reports: Hx Breast Surgery - implants 2003, Hx Cardiac Surgery, Hx Section - x2, Hx Tubal Ligation - Immunizations Immunizations up to date: Yes Hx Diphtheria, Pertussis, Tetanus Vaccination: Yes - received in 2009 Hx Pneumococcal Vaccination: 08/27/12 Review of Systems - Review of Systems Constitutional: No symptoms reported EENT: No symptoms reported Cardiovascular: Syncope, Dizziness Respiratory: No symptoms reported Gastrointestinal: No symptoms reported Genitourinary: No symptoms reported Female Genitourinary: No symptoms reported Musculoskeletal: Back pain, Muscle pain, Muscle stiffness Skin: No symptoms reported Hematologic/Lymphatic: No symptoms reported Neurological/Psychological: Gait changes -: Yes All other systems reviewed and negative Physical Exam - Vital signs Vitals: Temp Pulse Resp BP Pulse Ox 99.2 F 105 H 20 102/63 100 08/18/17 15:08 08/18/17 15:08 08/18/17 15:08 08/18/17 15:08 08/18/17 15:08 Interpretation: Normal - General General appearance: Appears well, Alert - HEENT Head: Normocephalic, Atraumatic Eyes: Normal Pupils: PERRL - Respiratory Respiratory status: No respiratory distress Chest status: Nontender Breath sounds: Normal Chest palpation: Normal - Cardiovascular Rhythm: Regular Heart sounds: Normal auscultation Murmur: No - Abdominal Inspection: Normal Distension: No distension Bowel sounds: Normal Tenderness: Nontender Organomegaly: No organomegaly - Back Back: Normal, Tender. No: Deformity/step-off, CVA tenderness, Vertebra tenderness, Scars, Scoliosis, Wounds - Extremities General upper extremity: Normal inspection, Nontender, Normal color, Normal ROM , Normal temperature General lower extremity: Normal inspection, Nontender, Normal color, Normal ROM , Normal temperature, Normal weight bearing. No: Ruslan's sign - Neurological Neuro grossly intact: Yes Cognition: Normal Orientation: AAOx4 [place] Coma Scale Eye Opening: Spontaneous [place] Coma Scale Verbal: Oriented [place] Coma Scale Motor: Obeys Commands [place] Coma Scale Total: 15 Speech: Normal Motor strength normal: LUE, RUE, LLE, RLE Sensory: Normal - Psychological Associated symptoms: Normal affect, Normal mood - Skin Skin Temperature: Warm Skin Moisture: Dry Skin Color: Normal Course - Re-evaluation Re-evalutation: 08/18/17 19:56 Patient able to get up and walk to the bathroom with no limping. Patient was able to get up sit on the side of the bed and move freely. Explained to patient that her urine was negative and that she needs to follow-up with her primary doctor who can continue to follow her symptoms as they change so they can determine what tests she does not does not need. Patient was discharged home to follow-up with a primary doctor given a list of the local doctors. No acute distress noted during her stay. Patient was able to move freely. She had no loss of motor control no loss of control of bowel bladder no saddle anesthesia no signs of cauda equina no acute injuries. - Vital Signs Vital signs: Temp Pulse Resp BP Pulse Ox 99.2 F 105 H 20 102/63 100 08/18/17 15:08 08/18/17 15:08 08/18/17 15:08 08/18/17 15:08 08/18/17 15:08 - Laboratory Laboratory results interpreted by me: 08/18/17 16:54 Urine Blood MODERATE H Discharge - Discharge Clinical Impression: chronic fainting spells, Upper back pain Chronic back pain Qualifiers: Back pain location: low back pain Back pain laterality: left Sciatica presence : with sciatica Sciatica laterality: sciatica of left side Qualified Code(s): M54.42 - Lumbago with sciatica, left side Condition: Stable Disposition: HOME, SELF-CARE Instructions: Family Physicians / Practices, Use of Abfi-Yip-Zybylaf Ibuprofen ([facility]), Stretching Exercises for the Back ([facility]) Additional Instructions: Chronic Back Pain Chronic back pain (pain persisting longer than three months) is a common problem. A medical evaluation can look for herniated disc, arthritis, osteoporosis, tumors, and infections. But at least half the time, there's no obvious treatable cause. Anxiety and depression tend to worsen back pain. Ibuprofen or other anti-inflammatory medicine can help. A heating pad, used for 15-20 minutes at a time, can ease pain. For this type of back pain, narcotic medicines should be avoided. Muscle relaxers are rarely helpful unless you're having spasms. Activity is important. Find an aerobic exercise program that your back can tolerate. Too much rest makes back pain worse. Specific back exercises are usually prescribed to strengthen the back and abdominal muscles. Often, a physical therapist can help. Avoid heavy lifting, working while bent over, or standing with both knees straight. Most back pain patients do better with a firm mattress. If new symptoms of a "herniated disc" (radiation of pain, numbness, or tingling down the back of the leg or weakness in the leg) occur, you should be re-examined. Chronic Pain Control Stress, inactivity, and depression make pain more severe regardless of the cause of the pain. Stress and poor physical condition can cause pain such as headaches and backache. Relaxation: Rest in a quiet place with your eyes closed for 20 minutes twice daily. Concentrate on a pleasant image, or simply "feel" your breathing. Clear your mind. Stress management: Deal with your "stressors." Either take action, or eliminate the stressor from your life. Don't let things hang over you. Accept those things you can't change. Nutrition: Eat small, balanced meals -- don't skip, don't overeat. Meals should be high-carbohydrate, low-sugar, low-fat. Exercise: Exercise helps painful conditions and eases stress. Get 30 minutes of moderate exercise, five days a week. Do an activity that does not flare your pain. Precautions: Pain which continues to disrupt daily activities, or which changes in nature, requires a medical evaluation. Pain Clinic referral is available. We do not manage chronic pain in the Emergency Department. We will try to appropriately help you through an acute flare of your chronic painful condition , but for on-going chronic pain that does not improve, you will need to see your private doctor or baker paint. We do not provide repeated medication management of chronic painful conditions. If you wish, we can provide the name of local pain management physicians. Syncopal Episode Syncope (fainting or near-fainting) can occur from many different health problems. Or it can be a simple fainting spell requiring no treatment. It is safe for you to go home, but further evaluation will likely be necessary. Your work-up may include tests for internal bleeding, heart disease, medication problems, or near-strokes. Tests are not always required, however, depending on the nature of your problem. The warning signs of an impending faint include: dizziness, lightheadedness , nausea, hot flashes, tingling, and weakness. If this happens, lay down and put your feet up, then wait until all of these symptoms have passed before standing up again. If these episodes become recurrent, or if you develop chest pain, heart palpitations, mental confusion, blurred vision, or headache, then you should call the physician, or go to the emergency room. Acetaminophen Acetaminophen may be taken for pain relief or fever control. It's much safer than aspirin, offering a wider range of "safe" dosages. It is safe during . Some brand names are Tylenol, Panadol, Datril, Anacin 3, Tempra, and Liquiprin. Acetaminophen can be repeated every four hours. The following are maximum recommended dosages: WEIGHT Dose Drops Elixir Chewable( 80mg) (LBS.) drprs=droppers tsp=teaspoon 6 40 mg .4 ml (1/2) 6-11 80 mg .8 ml (full) 1/2 tsp 1 tab 12-16 120 mg 1 1/2 drprs 3/4 tsp 1 1/2 tabs 17-23 160 mg 2 drprs 1 tsp 2 tabs 24-30 240 mg 3 drprs 1 1/2 tsp 3 tabs 30-35 320 mg 2 tsp 4 tabs 36-41 360 mg 2 1/4 tsp 4 1 /2 tabs 42-47 400 mg 2 1/2 tsp 5 tabs 48-53 480 mg 3 tsp 6 tabs 54-59 520 mg 3 1/4 tsp 6 1 /2 tabs 60-64 560 mg 3 1/2 tsp 7 tabs 65-70 600 mg 3 3/4 tsp 7 1 /2 tabs 71-76 640 mg 4 tsp 8 tabs 77-82 720 mg 4 1/2 tsp 9 tabs 83-88 800 mg 5 tsp 10 tabs >89 pounds or adults 650 mg to 900 mg Acetaminophen can be repeated every four hours. Maximum daily dose not to exceed 4000 mg. These maximum recommended dosages are slightly higher than the dosages written on the product container, but these dosages are very safe and well below the toxic dosage for acetaminophen. FOLLOW-UP CARE: If you have been referred to a physician for follow-up care, call the physician s office for an appointment as you were instructed or within the next two days. If you experience worsening or a significant change in your symptoms, notify the physician immediately or return to the Emergency Department at any time for re-evaluation. Referrals: [facility] [Provider Group] - Follow up as needed
[2017-08-18 17:11] LABS: APPEARANCE,URINE SLIGHTLY-CLOUDY; BILIRUBIN,URINE NEGATIVE (NEGATIVE); GLUCOSE, URINE NEGATIVE (NEGATIVE); KETONES,URINE NEGATIVE (NEGATIVE); LEUKOCYTE ESTERASE,URINE NEGATIVE (NEGATIVE); NITRITE,URINE NEGATIVE (NEGATIVE); PROTEIN,URINE NEGATIVE (NEGATIVE); URINE SPECIFIC GRAVITY 1.017; UROBILINOGEN,URINE NEGATIVE mg/dL (<2.0)
== END 2017-08-18 17:58 | disposition home or self-care (01) ==
LOC: ER 14:50
DX: R55 Syncope and collapse (principal); R42 Dizziness and giddiness; M54.42 Lumbago with sciatica, left side; M54.6 Pain in thoracic spine; Z91.040 Latex allergy status; Z88.6 Allergy status to analgesic agent; Z98.51 Tubal ligation status
CPT/HCPCS: 81001; 99283

== ENCOUNTER 2017-08-24 14:59 | Emergency (ER) | payer SELFPAY ==
[2017-08-24 15:03] VITALS: BP 102/63
[2017-08-24] MEDS ORDERED: PENICILLIN V POTASSIUM 500 MG TABLET PO ONE (15:48)
[2017-08-24] MEDS ORDERED: LIDOCAINE 2% VISCOUS SOLN 20 ML UDCUP PO ONE (15:48)
--- NOTE | 2017-08-24 15:54 | ER Document Report ---
ED Oral Problem - General Chief Complaint: Toothache Stated Complaint: TOOTH PAIN Time Seen by Provider: 08/24/17 15:38 Mode of Arrival: Ambulatory Information source: Patient Notes: 31-year-old female presents to ED for complaint of left-sided mouth pain 4 days. She states that the pain made her jaw hurt up into her ear. She has a little white hard spot on the back of her gum where her tooth #17 has been removed. TRAVEL OUTSIDE OF THE [place] IN LAST 30 DAYS: No - HPI Patient complains to provider of: Jaw pain, Toothache Onset: Other - 4 days Onset: Gradual Quality of pain: Other - Achy throbbing Severity: Moderate Pain Level: 4 Associated symptoms: Jaw pain, Toothache Worsened by: Cold Relieved by: Nothing Similar symptoms previously: No Recently seen / treated by doctor/dentist: Yes - Related Data Allergies/Adverse Reactions: latex [Latex] Allergy (Severe, Verified 08/24/17 15:01) swelling,burning trazodone [Trazodone] Allergy (Intermediate, Verified 08/24/17 15:01) Hives ibuprofen Allergy (Verified 08/24/17 15:01) ketorolac [From Toradol] Allergy (Verified 08/24/17 15:01) tramadol [Tramadol] Allergy (Verified 08/24/17 15:01) ondansetron HCl [From Zofran] Adverse Reaction (Intermediate, Verified 08/24/17 15:01) GI upset hydrocodone bitartrate [From Vicodin] Adverse Reaction (Verified 08/24/17 15:01) GI upset Past Medical History - General Information source: Patient - Social History Smoking Status: Former Smoker Cigarette use (# per day): No Chew tobacco use (# tins/day): No Smoking Education Provided: No Frequency of alcohol use: None Drug Abuse: None Lives with: Family Family History: Arthritis, CAD, DM, Hyperlipidemia, Hypertension, Malignancy, Thyroid Disfunction Patient has suicidal ideation: No Patient has homicidal ideation: No - Past Medical History Cardiac Medical History: Reports: None Pulmonary Medical History: Reports: Hx Asthma - exercise induced EENT Medical History: Reports: None Neurological Medical History: Reports: None Endocrine Medical History: Reports: None Renal/ Medical History: Reports: Hx Ovarian Cysts - PCOS Malignancy Medical History: Reports: None GI Medical History: Reports: Hx Gastroesophageal Reflux Disease, Hx Ulcer Musculoskeltal Medical History: Reports Hx Musculoskeletal Deformity - Scoliosis , Reports Hx Musculoskeletal Trauma - Sprains of knee and hip Skin Medical History: Reports None Psychiatric Medical History: Reports: Hx Attention Deficit Hyperactivity Disorder, Hx Bipolar Disorder - age 9, Hx Personality Disorder, Hx Post Traumatic Stress Disorder, Hx Schizophrenia Traumatic Medical History: Reports: None Infectious Medical History: Reports: None Past Surgical History: Reports: Hx Breast Surgery - implants 2004, Hx Cardiac Surgery, Hx Section - x2, Hx Tubal Ligation - Immunizations Immunizations up to date: Yes Hx Diphtheria, Pertussis, Tetanus Vaccination: Yes - received in 2009 Hx Pneumococcal Vaccination: 08/27/12 Review of Systems - Review of Systems Constitutional: No symptoms reported EENT: Mouth pain, Mouth swelling Cardiovascular: No symptoms reported Respiratory: No symptoms reported Gastrointestinal: No symptoms reported Genitourinary: No symptoms reported Female Genitourinary: No symptoms reported Musculoskeletal: No symptoms reported Skin: No symptoms reported Hematologic/Lymphatic: No symptoms reported Neurological/Psychological: No symptoms reported -: Yes All other systems reviewed and negative Physical Exam - Vital signs Vitals: Temp Pulse Resp BP Pulse Ox 98.6 F 101 H 16 102/63 99 08/24/17 15:01 08/24/17 15:01 08/24/17 15:01 08/24/17 15:01 08/24/17 15:01 Interpretation: Normal - General General appearance: Appears well, Alert - HEENT Head: Normocephalic, Atraumatic Eyes: Normal Pupils: PERRL Mouth/Lips: Caries Teeth diagram: 1 - Swelling to the thumb beside tooth 18 with small cavity and a small white chip of what could be a tooth root in the area of tooth #17 Pharynx: Normal Neck: Normal - Respiratory Respiratory status: No respiratory distress Chest status: Nontender Breath sounds: Normal Chest palpation: Normal - Cardiovascular Rhythm: Regular Heart sounds: Normal auscultation Murmur: No - Abdominal Inspection: Normal Distension: No distension Bowel sounds: Normal Tenderness: Nontender Organomegaly: No organomegaly - Back Back: Normal, Nontender - Extremities General upper extremity: Normal inspection, Nontender, Normal color, Normal ROM , Normal temperature General lower extremity: Normal inspection, Nontender, Normal color, Normal ROM , Normal temperature, Normal weight bearing. No: Ruslan's sign - Neurological Neuro grossly intact: Yes Cognition: Normal Orientation: AAOx4 Ashley Coma Scale Eye Opening: Spontaneous Ashley Coma Scale Verbal: Oriented [place] Coma Scale Motor: Obeys Commands Ashley Coma Scale Total: 15 Speech: Normal Motor strength normal: LUE, RUE, LLE, RLE Sensory: Normal - Psychological Associated symptoms: Normal affect, Normal mood - Skin Skin Temperature: Warm Skin Moisture: Dry Skin Color: Normal Course - Re-evaluation Re-evalutation: 08/24/17 17:15 Patient was treated with penicillin and lidocaine viscous for her pain and discharged home with prescription for penicillin. - Vital Signs Vital signs: Temp Pulse Resp BP Pulse Ox 98.6 F 101 H 16 102/63 99 08/24/17 15:01 08/24/17 15:01 08/24/17 15:01 08/24/17 15:01 08/24/17 15:01 Discharge - Discharge Clinical Impression: Pain due to dental caries Condition: Stable Disposition: HOME, SELF-CARE Additional Instructions: TOOTHACHE: Your pain is due to dental decay. The tooth must be repaired in order for you to feel better. You will, therefore, be referred to a dentist. We do not have dentists on the staff at [facility]. Severe swelling or drainage around a tooth usually means a dental abscess. This also requires evaluation and treatment by the dentist, but antibiotics may be prescribed while awaiting dental treatment. You should be rechecked immediately if you develop major swelling of the face, increasing pain, a lump in the jaw or gums, headache, difficulty swallowing, or fever. PENICILLIN V K: You have been given a prescription for Penicillin VK. Your physician has determined that this is the best antibiotic for your condition. Pen VK can be taken with meals, however more of the antibiotic gets into the bloodstream if it's taken on an empty stomach. Penicillin usually has no side effects. However, allergy to penicillins is common. If you have had an allergic reaction to any drug of the penicillin family, you should never take any other penicillin. Notify your doctor at once if you develop hives, itching, swelling, faintness, or shortness of breath. FOLLOW-UP CARE: You have been referred for follow-up care to the dentists listed below. Call the dentists office for an appointment as you were instructed or within the next two days. If you experience worsening or a significant change in your symptoms, notify the physician immediately or return to the Emergency Department at any time for re-evaluation. [facility] [address], [place] mornings, by appointment [facility] [address] [place] [address] [facility] [address] [facility] [address] [facility] ([facility]th) [facility] [address] [email or web address] [address] [place] [address] Wednesday- 8:00am to 5:00 pm Will see patients from other [facility]. Charges based on income and family size and accepts Medicare, Medicaid, and Insurances Will pull molars [facility] [address] Hours of Operation 8:00 am - 4:30 pm weekdays The following dental offices accept Medicaid: [facility] Dr[address] Dr. Shee[address] Dr. Maddox Xander Howard Lutsavage, and [facility] Dr. Suazo ([place]) Dr. Weber ([place]) [facility] Drs. Green and Gilbert ([place]) Dr. Wyatt ([place]) [facility] Dr. Gregory ([place]) Drs. Reid and ([place]) Medicaid Care Line Prescriptions: Penicillin V Potassium [Penicillin Vk 500 mg Tablet] 500 mg PO BID #20 tablet
== END 2017-08-24 16:20 | disposition home or self-care (01) ==
LOC: ER 14:59
DX: K02.9 Dental caries, unspecified (principal); R68.84 Jaw pain; Z91.040 Latex allergy status; Z88.6 Allergy status to analgesic agent; Z87.891 Personal history of nicotine dependence; Z98.51 Tubal ligation status
CPT/HCPCS: 99282; J3490

== ENCOUNTER 2017-10-11 12:58 | Emergency (ER) | payer SELFPAY ==
[2017-10-11] MEDS ORDERED: PROMETHAZINE HCL INJ 25 MG/1 ML VIAL IV ONE (13:39)
[2017-10-11] MEDS ORDERED: MORPHINE SULFATE 10 MG/ML INJ IV ONE ×3 (13:39→16:12)
[2017-10-11] MEDS ORDERED: NORMAL SALINE 1000 ML 1,000 ML IV ONE (13:39)
--- NOTE | 2017-10-11 13:41 | ER Document Report ---
ED Medical Screen (RME) - General Chief Complaint: Fall Injury Stated Complaint: HIP PAIN Time Seen by Provider: 10/11/17 13:39 Notes: Patient states that she slipped getting out of the bathtub in her left leg bent back under her. She now has excruciating left hip pain. TRAVEL OUTSIDE OF THE [place] IN LAST 30 DAYS: No - Related Data Allergies/Adverse Reactions: latex [Latex] Allergy (Severe, Verified 10/11/17 13:01) swelling,burning trazodone [Trazodone] Allergy (Intermediate, Verified 10/11/17 13:01) Hives ibuprofen Allergy (Verified 10/11/17 13:01) ketorolac [From Toradol] Allergy (Verified 10/11/17 13:01) tramadol [Tramadol] Allergy (Verified 10/11/17 13:01) ondansetron HCl [From Zofran] Adverse Reaction (Intermediate, Verified 10/11/17 13:01) GI upset hydrocodone bitartrate [From Vicodin] Adverse Reaction (Verified 10/11/17 13:01) GI upset Home Medications: Current Home Medications Acetaminophen [Tylenol] 1,000 mg PO DAILY 10/11/17 [History] Past Medical History - Social History Chew tobacco use (# tins/day): No Frequency of alcohol use: None Drug Abuse: None Family history: Reviewed & Not Pertinent, Other - Her sisters all have dysmenorrhea - Past Medical History Cardiac Medical History: Denies: Hx Pulmonary Embolism Pulmonary Medical History: Reports: Hx Asthma - exercise induced Denies: Hx Sleep Apnea, Hx Tuberculosis Renal/ Medical History: Reports: Hx Ovarian Cysts - PCOS. Denies: Hx Peritoneal Dialysis GI Medical History: Reports: Hx Gastroesophageal Reflux Disease, Hx Ulcer Musculoskeltal Medical History: Reports Hx Musculoskeletal Deformity - Scoliosis , Reports Hx Musculoskeletal Trauma - Sprains of knee and hip Psychiatric Medical History: Reports: Hx Attention Deficit Hyperactivity Disorder, Hx Bipolar Disorder - age 9, Hx Personality Disorder, Hx Post Traumatic Stress Disorder, Hx Schizophrenia Denies: Hx Depression Past Surgical History: Reports: Hx Breast Surgery - implants 2003, Hx Cardiac Surgery, Hx Section - x2, Hx Tubal Ligation. Denies: Hx Hysterectomy, Hx Pacemaker - Immunizations Immunizations up to date: Yes Hx Diphtheria, Pertussis, Tetanus Vaccination: Yes - received in 2009 Physical Exam - Vital signs Vitals: Temp Pulse Resp BP Pulse Ox 98.8 F 135 H 24 H 97/71 L 99 10/11/17 13:05 10/11/17 13:05 10/11/17 13:05 10/11/17 13:05 10/11/17 13:05 Course - Vital Signs Vital signs: Temp Pulse Resp BP Pulse Ox 98.8 F 135 H 24 H 97/71 L 99 10/11/17 13:05 10/11/17 13:05 10/11/17 13:05 10/11/17 13:05 10/11/17 13:05
--- NOTE | 2017-10-11 15:29 | RADIOLOGY REPORT (SQ) ---
EXAM DESCRIPTION: HIP LEFT AP/LATERAL COMPLETED DATE/TIME: 10/11/2017 3:06 pm REASON FOR STUDY: fall/pain COMPARISON: None. NUMBER OF VIEWS: Two views. TECHNIQUE: AP pelvis and additional frog-leg view of the left hip. LIMITATIONS: None. FINDINGS: MINERALIZATION: Normal. LEFT HIP: No fracture or dislocation. No worrisome bone lesions. RIGHT HIP: No fracture or dislocation. No worrisome bone lesions. PUBIS AND ISCHIUM: No fracture. PELVIS: No fracture. SACRUM: No fracture or dislocation. No worrisome bone lesions. LOWER LUMBAR SPINE: No fracture or dislocation. No worrisome bone lesions. No significant disc disea se. SOFT TISSUES: No findings. OTHER: No other significant finding. IMPRESSION: NEGATIVE STUDY OF THE LEFT HIP AND PELVIS. NO RADIOGRAPHIC EVIDENCE OF ACUTE INJURY. TECHNICAL DOCUMENTATION: JOB ID: [id number] [employer]- All Rights Reserved
--- NOTE | 2017-10-11 17:47 | RADIOLOGY REPORT (SQ) ---
EXAM DESCRIPTION: CT LT LOWER EXTREMITY WITHOUT COMPLETED DATE/TIME: 10/11/2017 5:16 pm REASON FOR STUDY: neg xray, severe pain/fall COMPARISON: None. TECHNIQUE: CT scan of the left hip performed without intravenous or oral contrast. Images reviewed with soft tissue and bone windows. Reconstructed coronal and sagittal MPR images reviewed. All imag es stored on PACS. All CT scanners at this facility use dose modulation, iterative reconstruction, and/or weight based d osing when appropriate to reduce radiation dose to as low as reasonably achievable (ALARA). [facility]: Dose Right [facility]: CareDose [facility]: Dose Right [facility]: Teradose 4D [facility]: Smart HESIODO RADIATION DOSE: mGy. LIMITATIONS: None. FINDINGS: VISUALIZE PELVIC BONES: No acute fracture. No worrisome bone lesions. SYMPTOMATIC HIP: No acute fracture or dislocation. No worrisome bone lesions. OPPOSITE HIP: Not included field of view. PELVIC SOFT TISSUES: No significant findings. EXTRAPELVIC SOFT TISSUES: No significant findings. OTHER: No other significant finding. IMPRESSION: NO ACUTE ABNORMALITY OF THE LEFT HIP. TECHNICAL DOCUMENTATION: JOB ID: [id number] Quality ID # [id number]: Final reports with documentation of one or more dose reduction techniques (e.g., Au tomated exposure control, adjustment of the mA and/or kV according to patient size, use of iterative reconstruction technique) 2010 [employer]- All Rights Reserved
--- NOTE | 2017-10-11 17:56 | ER Document Report ---
ED Fall - General Chief Complaint: Fall Injury Stated Complaint: HIP PAIN Time Seen by Provider: 10/11/17 13:39 Mode of Arrival: Ambulatory Information source: Patient Notes: Patient states that she slipped and fell in her bathroom at home. She states that her left leg got bent back underneath her body. She states she has severe hip pain radiating into her left knee. It is constant. It is worse with movement and better with rest. It is radiating down the left leg. She denies any loss of consciousness. TRAVEL OUTSIDE OF THE [place] IN LAST 30 DAYS: No - Related data Allergies/Adverse Reactions: latex [Latex] Allergy (Severe, Verified 10/11/17 13:01) swelling,burning trazodone [Trazodone] Allergy (Intermediate, Verified 10/11/17 13:01) Hives ibuprofen Allergy (Verified 10/11/17 13:01) ketorolac [From Toradol] Allergy (Verified 10/11/17 13:01) tramadol [Tramadol] Allergy (Verified 10/11/17 13:01) ondansetron HCl [From Zofran] Adverse Reaction (Intermediate, Verified 10/11/17 13:01) GI upset hydrocodone bitartrate [From Vicodin] Adverse Reaction (Verified 10/11/17 13:01) GI upset Home Medications: Current Home Medications Acetaminophen [Tylenol] 1,000 mg PO DAILY 10/11/17 [History] Past Medical History - General Information source: Patient - Social History Smoking Status: Current Every Day Smoker Chew tobacco use (# tins/day): No Frequency of alcohol use: None Drug Abuse: None Family History: Arthritis, CAD, DM, Hyperlipidemia, Hypertension, Malignancy, Thyroid Disfunction Patient has suicidal ideation: No Patient has homicidal ideation: No - Past Medical History Cardiac Medical History: Denies: Hx Pulmonary Embolism Pulmonary Medical History: Reports: Hx Asthma - exercise induced Denies: Hx Sleep Apnea, Hx Tuberculosis Renal/ Medical History: Reports: Hx Ovarian Cysts - PCOS. Denies: Hx Peritoneal Dialysis GI Medical History: Reports: Hx Gastroesophageal Reflux Disease, Hx Ulcer Musculoskeltal Medical History: Reports Hx Musculoskeletal Deformity - Scoliosis , Reports Hx Musculoskeletal Trauma - Sprains of knee and hip Psychiatric Medical History: Reports: Hx Attention Deficit Hyperactivity Disorder, Hx Bipolar Disorder - age 9, Hx Personality Disorder, Hx Post Traumatic Stress Disorder, Hx Schizophrenia Denies: Hx Depression Past Surgical History: Reports: Hx Breast Surgery - implants 2003, Hx Cardiac Surgery, Hx Section - x2, Hx Tubal Ligation. Denies: Hx Hysterectomy, Hx Pacemaker - Immunizations Immunizations up to date: Yes Hx Diphtheria, Pertussis, Tetanus Vaccination: Yes - received in 2009 Hx Pneumococcal Vaccination: 08/27/12 Review of Systems - Review of Systems Constitutional: denies: Chills, Fever Cardiovascular: denies: Chest pain, Palpitations Respiratory: denies: Cough, Short of breath Gastrointestinal: denies: Diarrhea, Vomiting -: Yes All other systems reviewed and negative Physical Exam - Vital signs Vitals: Temp Pulse Resp BP Pulse Ox 98.8 F 135 H 24 H 97/71 L 99 10/11/17 13:05 10/11/17 13:05 10/11/17 13:05 10/11/17 13:05 10/11/17 13:05 Interpretation: Normal - General General appearance: Appears well, Alert - HEENT Head: Normocephalic, Atraumatic Eyes: Normal Pupils: PERRL - Respiratory Respiratory status: No respiratory distress Chest status: Nontender Breath sounds: Normal Chest palpation: Normal - Cardiovascular Rhythm: Regular Heart sounds: Normal auscultation Murmur: No - Abdominal Inspection: Normal Distension: No distension Bowel sounds: Normal Tenderness: Nontender Organomegaly: No organomegaly - Back Back: Normal, Nontender - Extremities General upper extremity: Normal inspection, Nontender, Normal color, Normal ROM , Normal temperature General lower extremity: Normal inspection, Nontender, Normal color, Normal ROM , Normal temperature, Normal weight bearing. No: Ruslan's sign - Neurological Neuro grossly intact: Yes Cognition: Normal Orientation: AAOx4 Ashley Coma Scale Eye Opening: Spontaneous Erin Coma Scale Verbal: Oriented Ashley Coma Scale Motor: Obeys Commands Erin Coma Scale Total: 15 Speech: Normal Motor strength normal: LUE, RUE, LLE, RLE Sensory: Normal - Psychological Associated symptoms: Normal affect, Normal mood - Skin Skin Temperature: Warm Skin Moisture: Dry Skin Color: Normal Course - Vital Signs Vital signs: Temp Pulse Resp BP Pulse Ox 98.8 F 135 H 24 H 97/71 L 99 10/11/17 13:05 10/11/17 13:05 10/11/17 13:05 10/11/17 13:05 10/11/17 13:05 - Diagnostic Test Radiology reviewed: Image reviewed, Reports reviewed - Both the x-ray and CT scans are reviewed by me. No evidence of fracture dislocation. Discharge - Discharge Clinical Impression: Strain of left hip Qualifiers: Encounter type: initial encounter Qualified Code(s): S76.012A - Strain of muscle, fascia and tendon of left hip, initial encounter Condition: Stable Disposition: HOME, SELF-CARE Instructions: Muscle Strain ([facility]) Prescriptions: Oxycodone HCl/Acetaminophen [Percocet 5-325 mg Tablet] 1 - 2 tab PO Q4H PRN #15 tablet PRN Reason: Forms: Return to Work Referrals: AALIYAH GARCIA MD [ACTIVE STAFF] - Follow up in 1 week
[2017-10-11 18:13] VITALS: BP 111/71
== END 2017-10-11 18:13 | disposition home or self-care (01) ==
LOC: ER 12:58
DX: S76.012A Strain of muscle, fascia and tendon of left hip, initial encounter (principal); X50.0XXA Overexertion from strenuous movement or load, initial encounter; F17.200 Nicotine dependence, unspecified, uncomplicated; Z91.040 Latex allergy status; Z98.51 Tubal ligation status
CPT/HCPCS: 96376; 99284; 96361; 96374; 96375; 73502; 73700; J2270; J2550; J7030

== ENCOUNTER 2017-11-16 12:51 | Emergency (ER) | payer SELFPAY ==
--- NOTE | 2017-11-16 14:03 | ER Document Report ---
ED GI/ - General Mode of Arrival: Ambulatory Information source: Patient TRAVEL OUTSIDE OF THE [place] IN LAST 30 DAYS: No - HPI Patient complains to provider of: Abdominal pain Onset: Other - 3-4 days ago Associated symptoms: Other - see notes above <JURGEN BIGGS - Last Filed: 11/16/17 17:40> <NATIVIDAD WAYNE - Last Filed: 11/18/17 10:54> - General Chief Complaint: Abdominal Pain Stated Complaint: ABDOMINAL PAIN, POSSIBLE HIGH HEARTRATE Time Seen by Provider: 11/16/17 13:54 Notes: 31 year old female presents to the ED complaining of LUQ abdominal pain that started 3-4 days ago. Patient additionally complains of having heart burn with a burning sensation to her throat and mouth and an increased heart rate. Patient has been vomiting for the past 2 days, and denies any constipation, burning with urination, or vaginal discharge. Patient had a normal bowel movement yesterday. Patient's abdominal pain does not radiate, but last night she experienced severe pain to the right side to the point that she was unable to roll over. Patient has tried Pepsid, pepto bismol, and omeprazole to no relief. (JURGEN BIGGS) - Related Data Allergies/Adverse Reactions: latex [Latex] Allergy (Severe, Verified 10/11/17 13:01) swelling,burning trazodone [Trazodone] Allergy (Intermediate, Verified 10/11/17 13:01) Hives ibuprofen Allergy (Verified 10/11/17 13:01) ketorolac [From Toradol] Allergy (Verified 10/11/17 13:01) tramadol [Tramadol] Allergy (Verified 10/11/17 13:01) ondansetron HCl [From Zofran] Adverse Reaction (Intermediate, Verified 10/11/17 13:01) GI upset hydrocodone bitartrate [From Vicodin] Adverse Reaction (Verified 10/11/17 13:01) GI upset Past Medical History - General Information source: Patient - Social History Smoking Status: Current Every Day Smoker Chew tobacco use (# tins/day): No Frequency of alcohol use: None Drug Abuse: None Family History: Arthritis, CAD, DM, Hyperlipidemia, Hypertension, Malignancy, Thyroid Disfunction Patient has suicidal ideation: No Patient has homicidal ideation: No - Past Medical History Cardiac Medical History: Denies: Hx Pulmonary Embolism Pulmonary Medical History: Reports: Hx Asthma - exercise induced Denies: Hx Sleep Apnea, Hx Tuberculosis Renal/ Medical History: Reports: Hx Ovarian Cysts - PCOS. Denies: Hx Peritoneal Dialysis GI Medical History: Reports: Hx Gastroesophageal Reflux Disease, Hx Ulcer Musculoskeltal Medical History: Reports Hx Musculoskeletal Deformity - Scoliosis , Reports Hx Musculoskeletal Trauma - Sprains of knee and hip Psychiatric Medical History: Reports: Hx Attention Deficit Hyperactivity Disorder, Hx Bipolar Disorder - age 9, Hx Personality Disorder, Hx Post Traumatic Stress Disorder, Hx Schizophrenia Denies: Hx Depression Past Surgical History: Reports: Hx Breast Surgery - implants 2003, Hx Cardiac Surgery, Hx Section - x2, Hx Tubal Ligation. Denies: Hx Hysterectomy, Hx Pacemaker - Immunizations Immunizations up to date: Yes Hx Diphtheria, Pertussis, Tetanus Vaccination: Yes - received in 2009 Hx Pneumococcal Vaccination: 08/27/12 <JURGEN BIGGS - Last Filed: 11/16/17 17:40> Review of Systems - Review of Systems Constitutional: No symptoms reported EENT: No symptoms reported Cardiovascular: See HPI, Heart racing Respiratory: No symptoms reported Gastrointestinal: See HPI, Abdominal pain, Vomiting, Last bowel movement - yesterday (normal), Other - heartburn. denies: Constipation, Black stools Genitourinary: No symptoms reported. denies: Burning Female Genitourinary: No symptoms reported. denies: Vaginal discharge Musculoskeletal: No symptoms reported Skin: No symptoms reported Hematologic/Lymphatic: No symptoms reported Neurological/Psychological: No symptoms reported -: Yes All other systems reviewed and negative <JURGEN BIGGS - Last Filed: 11/16/17 17:40> Physical Exam - General General appearance: Alert In distress: None - HEENT Head: Normocephalic, Atraumatic Eyes: Normal Extraocular movements intact: Yes Pupils: PERRL - Respiratory Respiratory status: No respiratory distress Breath sounds: Normal - Cardiovascular Rhythm: Regular Heart sounds: Normal auscultation - Abdominal Inspection: Normal Distension: No distension Bowel sounds: Normal Tenderness: Tender - LUQ tenderness to palpation - Back Back: Normal - Extremities General upper extremity: Normal inspection, Normal ROM General lower extremity: Normal inspection, Normal ROM - Neurological Neuro grossly intact: Yes Cognition: Normal Orientation: AAOx4 [place] Coma Scale Eye Opening: Spontaneous Ashley Coma Scale Verbal: Oriented Ashley Coma Scale Motor: Obeys Commands [place] Coma Scale Total: 15 Speech: Normal - Psychological Associated symptoms: Normal affect, Normal mood - Skin Skin Temperature: Warm Skin Moisture: Dry Skin Color: Normal <JURGEN BIGGS - Last Filed: 11/16/17 17:40> - Vital signs Vitals: Temp Pulse Resp BP Pulse Ox 98.8 F 96 20 100/65 100 11/16/17 12:55 11/16/17 12:55 11/16/17 12:55 11/16/17 12:55 11/16/17 12:55 Course - Laboratory Result Diagrams: 11/16/17 14:57 11/16/17 14:57 <JURGEN BIGGS - Last Filed: 11/16/17 17:40> - Laboratory Result Diagrams: 11/16/17 14:57 11/16/17 14:57 <NATIVIDAD WAYNE - Last Filed: 11/18/17 10:54> - Vital Signs Vital signs: Temp Pulse Resp BP Pulse Ox 97.9 F 88 20 114/77 100 11/16/17 17:44 11/16/17 17:44 11/16/17 17:44 11/16/17 17:44 11/16/17 17:44 - Laboratory Laboratory results interpreted by me: 11/16/17 11/16/17 14:57 14:57 RDW 15.6 H Urine Nitrite POSITIVE H Discharge <JURGEN BIGGS - Last Filed: 11/16/17 17:40> <NATIVIDAD WAYNE - Last Filed: 11/18/17 10:54> - Discharge Clinical Impression: Gastritis Condition: Good Disposition: HOME, SELF-CARE Instructions: Family Physicians / Practices, Gastritis ([facility]) Additional Instructions: You need to follow-up with the primary care physician with the referral list provided for reevaluation within the next week. Please return to emergency department if symptoms are not improving over the next week Prescriptions: Magnesium Hydroxide [Milk of Magnesia] 400 mg PO QID 30 Days #1 bottle Promethazine HCl 25 mg PO Q6 PRN #30 tablet PRN Reason: Ranitidine HCl [Zantac] 150 mg PO BID 30 Days #60 tablet Scribe Attestation: 11/18/17 10:54 I personally performed the services described in the documentation, reviewed and edited the documentation which was dictated to describe my presence, and it accurately records my words and actions (NATIVIDAD WAYNE) Scribe Documentation - Scribe Written by Jake:: Jake Bryson, 11/16/2017 1432 acting as scribe for :: Jerry <JURGEN BIGGS - Last Filed: 11/16/17 17:40>
[2017-11-16] MEDS ORDERED: LIDOCAINE 2% VISCOUS SOLN 20 ML UDCUP PO ONE (14:04)
[2017-11-16] MEDS ORDERED: MAG HYDROX/AL HYDROX/SIMETH SUSP 30 ML UDCUP PO ONE (14:04)
[2017-11-16] MEDS ORDERED: METOCLOPRAMIDE HCL ORAL SOLN 10 MG/10 ML UDCUP PO ONE (14:04)
[2017-11-16 15:12] LABS: ABSOLUTE BASOPHILS # (AUTO) 0.1 10^3/uL (0.0-0.2); ABSOLUTE EOSINOPHILS # (AUTO) 0.2 10^3/uL (0.0-0.6); ABSOLUTE LYMPHOCYTES (AUTO) 3.2 10^3/uL (0.5-4.7); ABSOLUTE MONOCYTES (AUTO) 0.4 10^3/uL (0.1-1.4); ABSOLUTE NEUT (AUTO) 3.9 10^3/uL (1.7-8.2); BASOPHILS % (AUTO) 1.4 % (0-2); EOSINOPHILS % (AUTO) 2.3 % (0-6); HEMATOCRIT 41.2 % (36.0-47.0); HEMOGLOBIN 13.6 g/dL (12.0-15.5); LYMPHOCYTES % (AUTO) 41.2 % (13-45); MEAN CORPUSCULAR HEMOGLOBIN 29.3 pg (27.0-33.4); MEAN CORPUSCULAR VOLUME 89 fl (80-97); MONOCYTES % (AUTO) 5.2 % (3-13); PLATELET COUNT 433 10^3/uL (150-450); RED BLOOD COUNT 4.64 10^6/uL (3.72-5.28); RED CELL DISTRIBUTION WIDTH 15.6 % (11.5-14.0); SEGMENTED NEUTROPHILS % (AUTO) 49.9 % (42-78); TOTAL CELLS COUNTED % (AUTO) 100 %; WHITE BLOOD COUNT 7.7 10^3/uL (4.0-10.5)
[2017-11-16 15:27] LABS: APPEARANCE,URINE SLIGHTLY-CLOUDY; BILIRUBIN,URINE NEGATIVE (NEGATIVE); COLOR,URINE YELLOW; GLUCOSE, URINE NEGATIVE (NEGATIVE); KETONES,URINE NEGATIVE (NEGATIVE); LEUKOCYTE ESTERASE,URINE NEGATIVE (NEGATIVE); NITRITE,URINE POSITIVE (NEGATIVE); PROTEIN,URINE NEGATIVE (NEGATIVE); URINE SPECIFIC GRAVITY 1.019; UROBILINOGEN,URINE NEGATIVE mg/dL (<2.0)
[2017-11-16 15:30] LABS: ALANINE AMINOTRANSFERASE 31 U/L (9-52); ALBUMIN 4.8 g/dL (3.5-5.0); ALKALINE PHOSPHATASE 77 U/L (38-126); ANION GAP 11 (5-19); ASPARTATE AMINO TRANSFERASE 20 U/L (14-36); BILIRUBIN,DIRECT 0.2 mg/dL (0.0-0.4); BILIRUBIN,TOTAL 0.2 mg/dL (0.2-1.3); BLOOD UREA NITROGEN 10 mg/dL (7-20); CALCIUM 9.8 mg/dL (8.4-10.2); CARBON DIOXIDE 26 mmol/L (22-30); CHLORIDE 102 mmol/L (98-107); GLUCOSE 82 mg/dL (75-110); POTASSIUM 4.4 mmol/L (3.6-5.0); SODIUM 139.4 mmol/L (137-145); TOTAL PROTEIN 7.7 g/dL (6.3-8.2)
[2017-11-16 15:41] LABS: URINE AMPHETAMINES SCREEN NEGATIVE; URINE BARBITURATES SCREEN NEGATIVE; URINE BENZODIAZEPINES SCREEN NEGATIVE; URINE COCAINE SCREEN NEGATIVE; URINE MARIJUANA (THC) SCREEN NEGATIVE; URINE METHADONE SCREEN NEGATIVE; URINE PHENCYCLIDINE SCREEN NEGATIVE
[2017-11-16 18:05] VITALS: BP 114/77
== END 2017-11-16 17:50 | disposition home or self-care (01) ==
LOC: ER 12:51
DX: K29.70 Gastritis, unspecified, without bleeding (principal); F17.200 Nicotine dependence, unspecified, uncomplicated; Z98.51 Tubal ligation status; Z91.040 Latex allergy status; Z88.6 Allergy status to analgesic agent
CPT/HCPCS: 99284; 36415; 83690; 84703; 85025; 80053; 81001; 80307; J3490